=== PATIENT | female | born 2005 | race Caucasian/White ===

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

== ENCOUNTER 2023-03-20 14:05 | Emergency (ER) | payer OTHER, SELFPAY ==
[2023-03-20] VITALS (18 sets, daily range): BP systolic 111–128; BP diastolic 49–76; PULSE 66–91; RESP 14–18; TEMP 36.7; O2SAT 98–100
--- NOTE | ~2023-03-20 | CT_ITS ---
EXAMINATION: CT abdomen pelvis w con DATE: 03/20/2023 17:08 INDICATION: Right lower quadrant abdominal tenderness. Suprapubic pain. TECHNIQUE: Computed tomography (CT) of the abdomen and pelvis was performed with 100 mL Omnipaque 350 intravenous contrast. Automated exposure control and iterative reconstruction technique were employe d. The dose-length product was 455.43 mGy-cm. COMPARISON: None. FINDINGS: The visualized portions of the lung bases are clear. No pleural effusion. The heart size is normal. No pericardial effusion. The liver, gallbladder, spleen, pancreas, and adrenal glands are no rmal. There is cortical thinning of the kidneys, right worse than left. There is a 7 mm cyst in left kidney. There is a 3.1 cm cyst in right ovary. The appendix measures 9 mm in diameter. There is physi ologic fluid in the pelvis. There are no pathologically enlarged lymph nodes. There is mild thoracolu mbar spondylosis. IMPRESSION: 1. 3.1 cm cyst in right ovary, likely a follicular cyst. 2. Appendiceal diameter of 9 mm, which is indeterminate for appendicitis. Reviewed, dictated and finalized at location E.
[2023-03-20 15:14] LABS: Basophils Percent Auto 0.5 % (0.2-1.2); Eosinophils Absolute Auto 0.2 K/mm3 (0-0.3); Eosinophils Percent Auto 1.7 % (0-4.4); Hematocrit 36.9 % (37.0-47.0); Hemoglobin 11.3 g/dL (12.0-15.0); Immature Granulocyte Absolute 0.02 K/mm3 (0.00-0.031); Immature Granulocyte Percent A 0.2 % (0-0.5); Lymphocytes Absolute Auto 2.06 K/mm3 (0.9-3.2); Lymphocytes Percent Auto 23.9 % (18.3-44.2); Mean Corpuscular HGB Conc 30.6 g/dl (32-36); Mean Corpuscular Hemoglobin 25.6 pg (26-34); Mean Corpuscular Volume 83.7 fl (80-100); Mean Platelet Volume 9.7 fl (7.4-10.4); Monocytes Absolute Auto 0.6 K/mm3 (0.1-0.6); Monocytes Percent Auto 6.5 % (2.6-8.5); Neutrophils Absolute Auto 5.8 K/mm3 (1.3-6.7); Neutrophils Percent Auto 67.2 % (45.5-73.1); Platelet Count Result 393 k/mm3 (150-375); Red Blood Count 4.41 M/mm3 (4.2-5.4); Red Cell Distribution Width 14.9 % (11.5-14.5); White Blood Count 8.6 K/mm3 (4.5-10.0)
[2023-03-20 15:45] LABS: Beta HCG Quantitative < 2.39 mIU/ML
--- NOTE | 2023-03-20 16:18 | ED.FEMALEGU ---
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 Patient states that her period was late this month and it started a couple of days ago. States that she has had a lot of right-sided lower abdominal pain since that time. Reports mild dysuria as well. States that her period seems heavier than normal this month. She is soaking about a pad an hour. No nausea or vomiting, diarrhea, constipation, flank pain. No fevers, chest pain, shortness of breath, cough. Related Data Allergies Allergy/AdvReac Type Severity Reaction Status Date / Time No Known Allergies Allergy Verified 03/23/23 09:29 Review of Systems Review of Systems: All systems reviewed & are unremarkable except as noted in HPI and below PMFSH Past Medical History Medical History Genitourinary disorder Urethral surgery for a tear Gonorrhea contact, treated Obesity depression Family History Family History Father Heart problem Mother Hypertension Diabetes mellitus Grandparent Lung cancer Cerebrovascular accident Social History Social History Smoking status: Never smoker Alcohol intake: never Substance use: never Lack of Transportation: No Lack of Food: Never True Current Housing: I Have Housing Concerned About Future Housing: No Difficulty Paying Gas/Electric Bills: No Difficulty Paying for Meds: No Currently Unemployed: YES Education: High School Diploma/GED Difficulty w/ Childcare or Family Care: No Living arrangements: with family Occupation/Education: unemployed Gender identity (if verbalized by the patient): Female Sexual Orientation (if Verbalized by the Patient): Straight or Heterosexual Spiritual care concerns: No Exam Narrative: GENERAL: Well-appearing and in no acute distress. HEAD: Normocephalic, atraumatic. EYES: PERRLA and EOMI. ENT: Nares clear, no rhinorrhea or epistaxis. Mucous membranes moist. NECK: Supple. CHEST: Clear to auscultation. No respiratory distress. HEART: Regular rate and rhythm ABDOMEN: Soft, +RLQ tenderness, no guarding or rebound EXTREMITIES: Normal range of motion. No edema. SKIN: Warm, dry, no rash. NEURO: No focal deficits. Alert and oriented x3. PSYCH: Normal mood and affect. Course Vital Signs Vital signs: Vital Signs Temperature 98.1 F 03/20/23 14:15 Pulse Rate 77 03/20/23 14:15 Respiratory Rate 18 03/20/23 14:15 Blood Pressure 117/49 L 03/20/23 14:15 Pulse Oximetry 100 03/20/23 14:15 Oxygen Delivery Room Air 03/20/23 14:15 Temperature 98.0 F 03/20/23 14:42 Pulse Rate 66 03/20/23 21:05 Respiratory Rate 15 03/20/23 21:05 Blood Pressure 122/76 03/20/23 21:05 Pulse Oximetry 100 03/20/23 21:05 Oxygen Delivery Room Air 03/20/23 14:42 MDM - Female Genitourinary MDM Narrative Medical decision making narrative: Patient is a 18-year-old female presenting with right-sided lower abdominal pain. Vitals are stable. Exam remarkable for the above. CT abdomen pelvis is indeterminant for appendicitis. The appendix is measuring approximately 9 mm. No associated inflammatory changes. Patient does not have a leukocytosis. No left shift. Discussed the imaging findings with general surgery. Advised that if her pain is controlled, can likely send her home with p.o. antibiotics and follow-up in surgery clinic. She is tolerating p.o. intake. Patient states that her pain has significantly improved. She feels comfortable going home. We will start her on Keflex and Flagyl. We will also send in for 800 mg ibuprofen 3 times daily to help with pain as well as vaginal bleeding.
[2023-03-20] MEDS: KETOROLAC 30 MG/ML VIAL (*BKC) IV PUSH (16:34)
[2023-03-20] MEDS: SODIUM CHLORIDE 0.9% IV 1,000 ML 999 ML IV CONT (16:34)
[2023-03-20 16:46] LABS: Alanine Aminotransferase 14 U/L (6-35); Albumin Level 4.2 g/dL (3.5-5.1); Alkaline Phosphatase 77 U/L (38-126); Anion Gap 10 mmol/L (8-16); Aspartate Amino Transferase 24 U/L (14-36); Bilirubin,Total 0.2 mg/dL (0.2-1.3); Blood Urea Nitrogen 14 mg/dL (7-17); Calcium 9.2 mg/dL (8.4-10.2); Carbon Dioxide 25 mmol/L (22-30); Chloride 106 mmol/L (98-107); Estimated CRCL calculation 82 ml/min; Estimated Glomerular Filt Rate > 60; Glucose 84 mg/dL (65-110); Lipase 30 U/L (23-300); Potassium 4.2 mmol/L (3.4-5.0); Sodium 141 mmol/L (137-145)
[2023-03-20 16:49] LABS: Appearance Urine Cloudy (Clear); Bacteria Urine None Seen /hpf; Bilirubin Urine Negative (Negative); Blood Urine 3+ (Negative); Color Urine Yellow (Yellow); Glucose Urine UA Negative (Negative); Ketones Urine Trace mg/dL (Negative); Leukocyte Esterase Ur Trace LEU/UL (Negative); Nitrate Urine Negative (Negative); Non Pathogenic Casts 0-2; Protein Urine Trace mg/dL (Negative); RBC Urine >100 /hpf (0-2); Specific Grav Ur 1.031 (1.001-1.035); Squamous Epithelial Cell Urine Occasional /hpf (Few); pH Urine 6.5 (5.0-9.0)
[2023-03-20 16:51] LABS: Partial Thromboplastin Time 27.4 SECONDS (22.3-36.8); Prothrombin Time 13.7 Seconds (11.1-14.7)
[2023-03-20 17:16] LABS: Add Urine Microscopic? YES
[2023-03-20] MEDS: MORPHINE SULFATE (*CRX) 4 MG/ML INJ IV PUSH (19:14)
[2023-03-20] MEDS: cefTRIAXone 2 GM/NS 100 ML 2 GM/100 ML BAG IVPB (19:15)
[2023-03-20] MEDS: metroNIDAZOLE 500 MG/ISO 100ML 500 MG/100 ML BAG 100 MG IVPB (20:06)
== END 2023-03-20 21:08 | disposition home or self-care (01) ==
PROVIDERS: Preventive Medicine Aerospace Medicine; Emergency Provider Emergency Medicine; PCP Obstetrics & Gynecology
DX: N39.0 Urinary tract infection, site not specified (principal); N93.9 Abnormal uterine and vaginal bleeding, unspecified; R10.31 Right lower quadrant pain; E66.9 Obesity, unspecified; Z68.29 Body mass index [BMI] 29.0-29.9, adult; N83.201 Unspecified ovarian cyst, right side
CPT/HCPCS: 36415; 74177; 80053; 81001; 83690; 84702; 85025; 85610; 85730; 87086; 96361; 96365; 96367; 96375; 99284; J0696; J1836; J1885; J2270; J7030; Q9967

== ENCOUNTER 2023-03-30 06:54 | Outpatient (CLI) | payer OTHER, SELFPAY ==
--- NOTE | ~2023-03-30 | CT_ITS ---
CT of the Abdomen and Pelvis: Indication: Abdominal pain Technique: 2.5 mm axial scans were obtained through the abdomen and pelvis following intravenous adm inistration of 100 cc of Omnipaque 350. Dose reduction technique was used on this scan by utilizing a utomated exposure control and iterative reconstruction technique. The dose-length product (DLP) was 3 64.61 mGy-cm. COMPARISON: 03/20/2023 Findings: Scans through the lung bases are unremarkable. The liver, spleen, pancreas, gallbladder, adrenals and left kidney are within normal limits. There is probable mild right renal cortical scarring. No evidence of aortic aneurysm. No lymphadenopathy. No bowel obstruction or bowel wall thickening. Appendix is again upper limits of normal in size, with out periappendiceal inflammatory change. Images through the pelvis were performed. Urinary bladder unremarkable. Small bilateral follicular ov jamal cysts are present, largest measuring 2.6 cm. There is trace free fluid in the pelvis. Impression: Small bilateral follicular cysts, as above. Small amount of free fluid, possibly related to cyst rupture. Appendix is again upper limits of normal in size, without definite evidence for acute inflammation. Reviewed, dictated and finalized at location . Impression: Small bilateral follicular cysts, as above. Small amount of free fluid, possibly related to cyst rupture. Appendix is again upper limits of normal in size, without definite evidence for acute inflammation.
== END 2023-03-30 06:55 | disposition home or self-care (01) ==
PROVIDERS: Visit Provider Surgery
DX: R10.31 Right lower quadrant pain (principal); N83.02 Follicular cyst of left ovary; N83.01 Follicular cyst of right ovary
CPT/HCPCS: 74177; Q9967

== ENCOUNTER 2023-08-08 21:09 | Emergency (ER) | payer OTHER, SELFPAY ==
--- NOTE | ~2023-08-08 | CT_ITS ---
CT of the Abdomen and Pelvis: Indication: Abdominal pain Technique: 2.5 mm axial scans were obtained through the abdomen and pelvis following intravenous adm inistration of 100 cc of Omnipaque 350. Dose reduction technique was used on this scan by utilizing a utomated exposure control and iterative reconstruction technique. The dose-length product (DLP) was 5 24.15 mGy-cm. COMPARISON: 03/22/2023 Findings: Scans through the lung bases are unremarkable. The liver, spleen, pancreas, gallbladder, adrenals and kidneys are within normal limits. No evidence of aortic aneurysm. No lymphadenopathy. No bowel obstruction or bowel wall thickening. There is no evidence to suggest acute appendicitis. Images through the pelvis were performed. 4 cm probable hemorrhagic right ovarian cyst present. Small to moderate free fluid within the pelvis. No other pelvic mass seen. Urinary bladder unremarkable. Impression: 4 cm hemorrhagic right ovarian cyst with [id number] amount of pelvic free fluid. Reviewed, dictated and finalized at location . 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
--- NOTE | ~2023-08-08 | US_ITS ---
Pelvic ultrasound. Clinical History: Pelvic pain Technique: Realtime transabdominal and transvaginal scanning of the pelvis was performed. Color flow Doppler and Doppler spectral analysis were performed. Findings: The uterus is anteverted. The endometrial stripe has a thickness of 8 mm. No focal mass is identified. The right ovary measures 4.8 x 3.4 x 6.4 cm. Right ovarian cyst measures up to 4.8 cm in maximum diam eter, likely resolving hemorrhagic cyst. The left ovary measures 2.8 x 1.9 x 2.0 cm. No significant left ovarian or adnexal mass is seen. Vascular flow present in both ovaries on Doppler spectral analysis. There a small to moderate amount of free fluid in the cul de sac. Impression: 4.8 cm hemorrhagic right ovarian cyst. Uhfcv-nh-akqjbawh free fluid in the pelvis. Reviewed, dictated and finalized at [facility]. L DRAFTER Impression: 4.8 cm hemorrhagic right ovarian cyst. Mpgtk-oa-mcyvsgyv free fluid in the pelvis.
[2023-08-08 21:12] VITALS: BP 132/52; PULSE 98; RESP 17; TEMP 37.3; O2SAT 99
[2023-08-08 21:28] LABS: Basophils Percent Auto 0.4 % (0.2-1.2); Eosinophils Absolute Auto 0.3 K/mm3 (0-0.3); Eosinophils Percent Auto 2.4 % (0-4.4); Hematocrit 34.9 % (37.0-47.0); Hemoglobin 10.6 g/dL (12.0-15.0); Immature Granulocyte Absolute 0.02 K/mm3 (0.00-0.031); Immature Granulocyte Percent A 0.2 % (0-0.5); Lymphocytes Absolute Auto 3.24 K/mm3 (0.9-3.2); Lymphocytes Percent Auto 29.8 % (18.3-44.2); Mean Corpuscular HGB Conc 30.4 g/dl (32-36); Mean Corpuscular Hemoglobin 24.9 pg (26-34); Mean Corpuscular Volume 82.1 fl (80-100); Mean Platelet Volume 9.5 fl (7.4-10.4); Monocytes Absolute Auto 0.7 K/mm3 (0.1-0.6); Monocytes Percent Auto 6.1 % (2.6-8.5); Neutrophils Absolute Auto 6.7 K/mm3 (1.3-6.7); Neutrophils Percent Auto 61.1 % (45.5-73.1); Platelet Count Result 393 k/mm3 (150-375); Red Blood Count 4.25 M/mm3 (4.2-5.4); Red Cell Distribution Width 15.1 % (11.5-14.5); White Blood Count 10.9 K/mm3 (4.5-10.0)
[2023-08-08 21:38] LABS: Alanine Aminotransferase 14 U/L (6-35); Albumin Level 4.2 g/dL (3.5-5.1); Alkaline Phosphatase 81 U/L (38-126); Anion Gap 7 mmol/L (8-16); Aspartate Amino Transferase 21 U/L (14-36); Bilirubin,Total 0.3 mg/dL (0.2-1.3); Blood Urea Nitrogen 14 mg/dL (7-17); Calcium 9.2 mg/dL (8.4-10.2); Carbon Dioxide 26 mmol/L (22-30); Chloride 105 mmol/L (98-107); Estimated CRCL calculation 103 ml/min; Estimated Glomerular Filt Rate > 60; Glucose 102 mg/dL (65-110); Lipase 33 U/L (23-300); Potassium 3.8 mmol/L (3.4-5.0); Sodium 138 mmol/L (137-145)
[2023-08-08 23:49] VITALS: BP 129/78; PULSE 100; RESP 18; O2SAT 100
[2023-08-09 00:18] LABS: Appearance Urine Clear (Clear); Bilirubin Urine Negative (Negative); Blood Urine Negative (Negative); Color Urine Yellow (Yellow); Glucose Urine UA Negative (Negative); Ketones Urine Trace mg/dL (Negative); Leukocyte Esterase Ur Negative LEU/UL (Negative); Nitrate Urine Negative (Negative); Protein Urine Negative (Negative); Specific Grav Ur 1.032 (1.001-1.035); pH Urine 7.5 (5.0-9.0)
[2023-08-09 00:19] LABS: Add Urine Microscopic? NO
--- NOTE | 2023-08-09 00:35 | ED.ABDPAIN ---
HPI - Abdominal Pain General Chief Complaint: Abdominal Pain <Meg Sawyer PA-C - Last Filed: 08/09/23 02:33> Stated Complaint: abd/pelvic pain, vaginal discharge <Meg Sawyer PA-C - Last Filed: 08/09/23 02:33> Time Seen by Provider: 08/08/23 23:44 <Meg Sawyer PA-C - Last Filed: 08/09/23 02:33> History of Present Illness HPI narrative: 18-year-old female, reports for evaluation for suprapubic and right lower quadrant abdominal pain that started tonight. LMP 07/14/23. Patient was seen in our emergency department on 03/20/2023 for lower abdominal pain. She was found to have CT findings indeterminate for appendicitis. She was discharged home with follow-up outpatient with General surgery, had a repeat CT scan done which showed appendix upper limits of normal size but without acute inflammation. Patient states her pain now feels like it did when she was evaluated in the ER for that pain. She denies fever, nausea vomiting, diarrhea. Last bowel movement was yesterday and normal. Denies dysuria hematuria, urinary frequency urgency, vaginal bleeding or abnormal discharge. States she was recently tested for STDs by her OBGYN was negative. She is not concerned for STDs today. <Meg Sawyer PA-C - Last Filed: 08/09/23 02:33> Related Data Allergies/Adverse Reactions: Allergies Allergy/AdvReac Type Severity Reaction Status Date / Time No Known Allergies Allergy Verified 07/25/23 10:21 <Meg Sawyer PA-C - Last Filed: 08/09/23 02:33> Review of Systems Review of Systems: CONSTITUTIONAL: Denies fever, chills, or sweats. EYES: Denies visual changes, redness, or discharge. ENT: Denies rhinorrhea, congestion, sore throat, or otalgia. CARDIOVASCULAR: Denies chest pain, palpitations, or edema. RESPIRATORY: Denies cough or dyspnea. GASTROINTESTINAL: See HPI GENITOURINARY: Denies dysuria or hematuria. SKIN: Denies rash or itching. MUSCULOSKELETAL: Denies back pain, joint pain, or myalgia. NEUROLOGIC: Denies headache, numbness, or weakness. PSYCHIATRIC: Denies anxiety or depression. <Meg Sawyer PA-C - Last Filed: 08/09/23 02:33> [facility] Past Medical History Medical History: Medical History Genitourinary disorder Urethral surgery for a tear Gonorrhea contact, treated Obesity depression <Meg Sawyer PA-C - Last Filed: 08/09/23 02:33> Family History Family History: Family History Father Heart problem Mother Hypertension Diabetes mellitus Grandparent Lung cancer Cerebrovascular accident <Meg Sawyer PA-C - Last Filed: 08/09/23 02:33> Social History Social History: Social History Smoking status: Never smoker Alcohol intake: never Substance use: never Lack of Transportation: No Lack of Food: Never True Current Housing: I Have Housing Concerned About Future Housing: No Difficulty Paying Gas/Electric Bills: No Difficulty Paying for Meds: No Currently Unemployed: YES Education: High School Diploma/GED Difficulty w/ Childcare or Family Care: No Living arrangements: with family Occupation/Education: unemployed Gender identity (if verbalized by the patient): Female Sexual Orientation (if Verbalized by the Patient): Straight or Heterosexual Spiritual care concerns: No <Meg Sawyer PA-C - Last Filed: 08/09/23 02:33> Exam Narrative: GENERAL: Well-appearing, well-nourished, and in no acute distress. HEAD: Normocephalic, atraumatic. EYES: PERRLA and EOMI. ENT: Nares clear, no rhinorrhea or epistaxis. Mucous membranes moist. NECK: Supple. CHEST: Clear to auscultation. No respiratory distress. HEART: Regular rate and rhythm. No murmur heard. Normal peripheral pulses. ABDOMEN: Normoactive bowel sounds.
[2023-08-09 01:00] VITALS: BP 124/62; PULSE 81; RESP 18; O2SAT 99
[2023-08-09] MEDS: SODIUM CHLORIDE 0.9% IV 1,000 ML 999 ML IV CONT (01:08)
[2023-08-09] MEDS: MORPHINE SULFATE (*CRX) 4 MG/ML INJ IV PUSH (01:08)
[2023-08-09 04:10] VITALS: BP 124/64; PULSE 75; RESP 15; O2SAT 100
== END 2023-08-09 04:13 | disposition home or self-care (01) ==
PROVIDERS: Emergency Provider Emergency Medicine
DX: N83.201 Unspecified ovarian cyst, right side (principal); R10.30 Lower abdominal pain, unspecified
CPT/HCPCS: 36415; 74177; 76830; 76856; 80053; 81003; 81025; 83690; 85025; 96361; 96374; 99284; J2270; J7030; Q9967

== ENCOUNTER 2024-06-17 14:27 | Emergency (ER) | payer OTHER, SELFPAY ==
[2024-06-17 14:32] VITALS: BP 130/76; PULSE 100; RESP 18; TEMP 36.5; O2SAT 100
[2024-06-17] MEDS: SODIUM CHLORIDE 0.9% IV 1,000 ML 999 ML IV CONT (15:14)
[2024-06-17] MEDS: MECLIZINE HCL 25 MG TABLET PO (15:14)
[2024-06-17 15:16] LABS: Basophils Percent Auto 0.2 % (0.2-1.2); Eosinophils Percent Auto 0.3 % (0-4.4); Hemoglobin 11.3 g/dL (12.0-15.0); Immature Granulocyte Absolute 0.02 K/mm3 (0.00-0.031); Immature Granulocyte Percent A 0.3 % (0-0.5); Lymphocytes Absolute Auto 0.91 K/mm3 (0.9-3.2); Lymphocytes Percent Auto 15.6 % (18.3-44.2); Mean Corpuscular HGB Conc 33.2 g/dl (32-36); Mean Corpuscular Hemoglobin 27.3 pg (26-34); Mean Corpuscular Volume 82.1 fl (80-100); Mean Platelet Volume 9.4 fl (7.4-10.4); Monocytes Absolute Auto 0.3 K/mm3 (0.1-0.6); Monocytes Percent Auto 5.5 % (2.6-8.5); Neutrophils Absolute Auto 4.5 K/mm3 (1.3-6.7); Neutrophils Percent Auto 78.1 % (45.5-73.1); Platelet Count Result 281 k/mm3 (150-375); Red Blood Count 4.14 M/mm3 (4.2-5.4); Red Cell Distribution Width 15.5 % (11.5-14.5); White Blood Count 5.8 K/mm3 (4.5-10.0)
[2024-06-17 15:27] LABS: Alanine Aminotransferase 17 U/L (6-35); Albumin Level 3.9 g/dL (3.5-5.1); Alkaline Phosphatase 91 U/L (38-126); Anion Gap 6 mmol/L (4-12); Aspartate Amino Transferase 20 U/L (14-36); Bilirubin,Total 0.2 mg/dL (0.2-1.3); Blood Urea Nitrogen 6 mg/dL (7-17); Calcium 8.7 mg/dL (8.4-10.2); Carbon Dioxide 24 mmol/L (22-30); Chloride 105 mmol/L (98-107); Estimated CRCL calculation 173 ml/min; Estimated Glomerular Filt Rate > 60; Glucose 97 mg/dL (65-110); Potassium 3.8 mmol/L (3.4-5.0); Sodium 135 mmol/L (137-145)
--- NOTE | 2024-06-17 15:54 | PC.NURSE ---
Patient states that she feels much better. Notified EDP Dr. Wu.
--- NOTE | 2024-06-17 16:43 | ED.GENADULT ---
HPI - General Adult General Chief complaint: Nausea/Vomiting/Diarrhea Stated complaint: OB sent for fluids n/v Time Seen by Provider: 06/17/24 14:40 History of Present Illness HPI narrative: Patient is a 19-year-old female who presents ER with nausea and dizziness. Ongoing for couple days. Worse if she lays on her right side. Feels spinning. No runny nose or sore throat or cough. No fevers or chills or sweats. She is 15 weeks in gestation. No vaginal bleeding or discharge. No urinary symptoms. Related Data Home Medications ?Medication ?Instructions ?Recorded ?Confirmed ?Last Taken ?Type docosahexaenoic acid 200 mg mg PO 05/22/24 05/22/24 Unknown History capsule ( DHA) Allergies Allergy/AdvReac Type Severity Reaction Status Date / Time No Known Allergies Allergy Verified 06/17/24 14:29 Review of Systems Constitutional: Constitutional: Reports no additional constitutional complaints ENT: Reports dizziness, Denies nasal congestion and Denies sore throat Gastrointestinal: Gastrointestinal: Denies abdominal pain, Denies diarrhea, Reports nausea and Denies vomiting Genitourinary: Genitourinary: Reports no additional female genitourinary complaints PMFSH Past Medical History Medical History Genitourinary disorder Urethral surgery for a tear Gonorrhea contact, treated Obesity depression Family History Family History Father Heart problem Mother Hypertension Diabetes mellitus Grandparent Lung cancer Cerebrovascular accident Social History Social History Smoking status: Never smoker Alcohol intake: never Substance use: never Lack of Transportation: No Lack of Food: Never True Current Housing: I Have Housing Concerned About Future Housing: No Difficulty Paying Gas/Electric Bills: No Difficulty Paying for Meds: No Currently Unemployed: YES Education: High School Diploma/GED Difficulty w/ Childcare or Family Care: No Living arrangements: with family Occupation/Education: unemployed Gender identity (if verbalized by the patient): Female Sexual Orientation (if Verbalized by the Patient): Straight or Heterosexual Spiritual care concerns: No Exam Narrative: GENERAL: Well-appearing, well-nourished, and in no acute distress. HEAD: Normocephalic, atraumatic. EYES: PERRL and right gaze nystagmus. ENT: Mucous membranes moist. TMs normal bilaterally, ear canals without cerumen. CHEST: Clear to auscultation. No respiratory distress. HEART: Regular rate and rhythm. Normal peripheral pulses. ABDOMEN: Soft, nontender, nondistended. EXTREMITIES: Normal range of motion. No edema. NEURO: Alert and oriented x3. PSYCH: Normal mood and affect. Course Course Emergency Course: Feels markedly improved with meclizine and fluids. Labs unremarkable. Appropriate for discharge. Vital Signs Vital signs: Vital Signs Temperature 97.7 F 06/17/24 14:32 Pulse Rate 100 06/17/24 14:32 Respiratory Rate 18 06/17/24 14:32 Blood Pressure 130/76 06/17/24 14:32 Pulse Oximetry 100 06/17/24 14:32 Oxygen Delivery Room Air 06/17/24 14:32 Temperature 97.7 F 06/17/24 16:57 Pulse Rate 66 06/17/24 16:57 Respiratory Rate 17 06/17/24 16:57 Blood Pressure 106/60 06/17/24 16:57 Pulse Oximetry 100 06/17/24 16:57 Oxygen Delivery Room Air 06/17/24 14:32 Medical Decision Making Vital Signs Vital Signs: Vital Signs Temperature 97.7 F 06/17/24 14:32 Pulse Rate 100 06/17/24 14:32 Respiratory Rate 18 06/17/24 14:32 Blood Pressure 130/76 06/17/24 14:32 Pulse Oximetry 100 06/17/24 14:32 Oxygen Delivery Room Air 06/17/24 14:32 Temperature 97.7 F 06/17/24 16:57 Pulse Rate 66 06/17/24 16:57 Respiratory Rate 17 06/17/24 16:57 Blood Pressure 106/60 06/17/24 16:57 Pulse Oximetry 100 06/17/24 16:57 Oxygen Delivery Room Air 06/17/24 14:32 Lab Data 06/17/24 15:09 06/17/24 15:09 Labs: Lab Results 06/17/24 Range/Units 15:09 WBC 5.8 (4.5-10.0) K/mm3 RBC 4.14 L (4.2-5.4) M/mm3 Hgb 11.3 L (12.0-15.0) g/dL Hct 34.0 L (37.0-47.0) % MCV 82.1 (80-100) fl MCH 27.3 (26-34) pg MCHC 33.2 (32-36) g/dl RDW 15.5 H (11.5-14.5) % Plt Count 281 (150-375) k/mm3 MPV 9.4 (7.4-10.4) fl Immature Gran % (Auto) 0.3 (0-0.5) % Neut % (Auto) 78.1 H (45.5-73.1) % Lymph % (Auto) 15.6 L (18.3-44.2) % [place] % (Auto) 5.5 (2.6-8.5) % Eos % (Auto) 0.3 (0-4.4) % Baso % (Auto) 0.2 (0.2-1.2) % Lymph # (Auto) 0.91 (0.9-3.2) K/mm3 [place] # (Auto) 0.3 (0.1-0.6) K/mm3 Eos # (Auto) 0.0 (0-0.3) K/mm3 Baso # (Auto) 0.0 (0.0-0.1) K/mm3 Abs Immat Gran (auto) 0.02 (0.00-0.031) K/mm3 Absolute Neuts (auto) 4.5 (1.3-6.7) K/mm3 Absolute Nucleated RBC 0.000 (0.0-0.012) K/mm3 Nucleated RBC % 0.0 (0.0-0.2) % Sodium 135 L (137-145) mmol/L Potassium 3.8 (3.4-5.0) mmol/L Chloride 105 (98-107) mmol/L Carbon Dioxide 24 (22-30) mmol/L Anion Gap 6 (4-12) mmol/L BUN 6 L D (7-17) mg/dL Creatinine 0.40 L (0.7-1.0) mg/dL Estim Creat Clear Calc 173 ml/min Estimated GFR > 60 (59 - ) Glucose 97 (65-110) mg/dL Calcium 8.7 (8.4-10.2) mg/dL Total Bilirubin 0.2 (0.2-1.3) mg/dL AST 20 (14-36) U/L ALT 17 (6-35) U/L Alkaline Phosphatase 91 (38-126) U/L Total Protein 7.0 (6.3-8.2) g/dL Albumin 3.9 (3.5-5.1) g/dL Discharge Plan Discharge Clinical Impression: Vertigo Patient Disposition: Home, Self-Care Condition: Stable Instructions: Vertigo (ED) Additional Instructions: Return the ER if you have worsening dizziness, you can not keep down food/water/medication, or you have additional concerns. Patient Language: Irish Prescriptions: New meclizine 12.5 mg tablet 12.5 mg PO TID PRN (Reason: dizziness) Qty: 14 0RF No Action DHA 200 mg capsule PO Follow-up/Referrals: Damien Shaw MD [Primary Care Provider] - 1 Week Stand Alone Forms: Work/School Release IP
[2024-06-17 16:57] VITALS: BP 106/60; PULSE 66; RESP 17; TEMP 36.5; O2SAT 100
== END 2024-06-17 16:59 | disposition home or self-care (01) ==
PROVIDERS: Emergency Provider Emergency Medicine; PCP Obstetrics & Gynecology
DX: R42 Dizziness and giddiness (principal); E66.9 Obesity, unspecified; Z68.31 Body mass index [BMI] 31.0-31.9, adult
CPT/HCPCS: 36415; 80053; 85025; 96360; 99283; A9270; J7030

== ENCOUNTER 2024-06-19 14:20 | Outpatient (CLI) | payer OTHER, SELFPAY ==
--- NOTE | ~2024-06-19 | US_ITS ---
EXAMINATION: US OB follow up DATE: 06/19/2024 15:28 INDICATION: Amenorrhea during early second trimester TECHNIQUE: Real-time ultrasound of the pelvis was performed. The interpreting radiologist was not pre sent for the study. COMPARISON: None. FINDINGS: There is a single living fetus in breech presentation. The placenta is anterior with caudal margin 3 .8 cm from the internal cervical os. heart rate is 151 beats per minute (bpm). The amniotic flu id and is subjectively normal. Deepest vertical pocket measures 6.8 cm which is normal. Normal cervic al length measuring 3.3 cm. The following biometric data were obtained: BPD: 3.0 cm -> 15 weeks 4 days Head circumference: 11.8 cm -> 15 weeks 6 days Abdominal circumference: 10.5 cm -> 16 weeks 3 days Femur length: 2.0 cm -> 15 weeks 6 days These measurements are concordant. Head circumference to abdominal circumference ratio: 1.13 (normal range 1.06-1.34). Estimated weight: 145 g (+/-) 22 g or 5 oz. (+/-) 1 oz. IMPRESSION: 1. Single living fetus in breech presentation with heart rate of 151 bpm. 2. Gestational age by ultrasound of 16 weeks 0 day(s) +/- 1 week 1 day with ultrasound estimated date of delivery (ALDO) of 12/04/2024. Estimated weight is 83rd percentile by Hadlock criteria when 12/08/2024 is used as the ALDO. Please correlate with clinical information or earlier ultrasounds for most accurate ALDO. Reviewed, dictated and finalized at location A. 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 Single living fetus in breech presentation with heart rate of 151 bpm. 2. Gestational age by ultrasound of 16 weeks 0 day(s) +/- 1 week 1 day with ult rasound estimated date of delivery (ALDO) of 12/04/2024. Estimated weight is 83rd percentile by Hadlock criteria when 12/08/2024 is used as the ALDO. Please c orrelate with clinical information or earlier ultrasounds for most accurate ALDO .
== END 2024-06-19 14:21 | disposition home or self-care (01) ==
PROVIDERS: PCP Obstetrics & Gynecology; Visit Provider Nurse Practitioner Family
DX: N91.2 Amenorrhea, unspecified (principal)
CPT/HCPCS: 76816

== ENCOUNTER 2024-10-08 15:22 | Observation (INO) | payer OTHER, SELFPAY ==
[2024-10-08 16:03] VITALS: BP 134/76; PULSE 101
[2024-10-08 16:15] VITALS: BP 120/66; PULSE 98
[2024-10-08 16:30] VITALS: BP 119/67; PULSE 100
[2024-10-08 16:40] LABS: Add Urine Microscopic? YES; Appearance Urine Cloudy (Clear); Bacteria Urine 2+ /hpf; Bilirubin Urine Negative (Negative); Blood Urine Negative (Negative); Color Urine Yellow (Yellow); Glucose Urine UA Negative (Negative); Ketones Urine Trace mg/dL (Negative); Leukocyte Esterase Ur 1+ LEU/UL (Negative); Nitrate Urine Negative (Negative); Non Pathogenic Casts 0-2; Protein Urine Negative (Negative); RBC Urine 0-2 /hpf (0-2); Specific Grav Ur 1.023 (1.001-1.035); Squamous Epithelial Cell Urine Moderate /hpf (Few); Urobilinogen Urine 0.2 mg/dL (<2.0); pH Urine 6.5 (5.0-9.0)
--- OUTSIDE RECORDS SUMMARY | 2024-10-08 16:44 | XMS_ITS ---
Author Name [facility], [facility] Address [address] [place] [address] Phone Organization [facility] Address [address] [place] [address] Phone Care Team Providers Care Physician Assistant Psychiatry Name Role Phone [facility] Unavailable [phone] WAYNE HANKS Unavailable ALLERGIES, ADVERSE REACTIONS AND ALERTS Allergy Name Allergy Date Allergy Status Allergy Severity Allergy Reaction NO KNOWN DRUG ALLERGIES MEDICATIONS RxNorm Brand Name Prescription Ordered Value Order Unit Start Date Date Status Fill Status Indications 458807 amoxicill in-pot clavulana te 875-125 mg tablet SIG: amoxicillin-p ot clavulanate 875-125 mg oral tablet, 7 days, Dispense #14 Tablet, 0 Refills, Directions: Take one tablet by mouth twice daily X 7 days 14 tablet 2023 024 Historic PROBLEMS Problem None PROCEDURES Procedure Description Date Notes NO PROCEDURES PERFORMED ASSESSMENTS Assessment None PLAN OF TREATMENT Assessment Planned Activity LOINC Planned Ab e None CONSULTATION NOTE Note Author Date None HISTORY AND PHYSICAL NOTE Note Author Date None PROGRESS NOTE Note Author Date None DISCHARGE SUMMARY Note Author Date None CHIEF COMPLAINT AND REASON FOR VISIT FUNCTIONAL STATUS Functional or Cognitive Find ing None MENTAL STATUS Cognitive Finding None ENCOUNTERS Encounter Type Provider Diagnoses Start Date Location None SOCIAL HISTORY Social Status Observation Unknown if ever smoked Sex:Female CARE TEAM INFORMATION Physician Assistant Psychiatry Provider ID Role Location Phone [facility] [address] [place] [address] WAYNE TUTTLE [phone] NURSE PRACTITIONER [address] [place] [address]
--- OUTSIDE RECORDS SUMMARY | 2024-10-08 16:44 | XMS_ITS | Clinical Summary ---
Author Organization [facility] Address [address] [place] [address] Care Team Providers Care Director Of Nursing Name Role Phone Unavailable Primary Care Provider Unavailabl e Source Comments [facility],non-owned Affiliates and Associated Physician Practices is amultiple site organization consisting of ambulatory clinics and hospital sitesin [place], [place], [place] and [place]. This disclosure is being madepursuant to the Care Everywhere program and may not contain all information available regarding this patient. Last updated 18.[facility] Allergies No known active allergies Medications * Be aware that medications may not be up to date on this document. Alwaysverify current medications with the patient. Medication Sig Dispensed Refills Start Date End Date Status doxylamine (Unisom) 25 MG tablet Take 1 (one) tablet by mouth nightly as needed for Insomnia 30 tablet 2 05/07/2024 Active pyridoxine (Vitamin B-6) 25 MG tablet Take 1 (one) tablet by mouth 3 times daily 90 tablet 2 05/07/2024 Active Active Problems Problem Noted Date Diagnosed Date 9 weeks gestation of 05/07/2024 Nausea 05/07/2024 Estimated Date of Delivery Comme nts Yes 12/08/2024 Based on last me nstrual period of 03/03/2024 Social History Tobacco Use Types Packs/Day Years Used Date Smoking Tobacco: Never Smokeless Tobacco: Never Overall Financial Resource Strain (CARDIA) Answe r Date Recorded How hard is it for you to pa y for the very basics like food, housing, medical care, and heating? Not hard at all 05/07/2024 [facility] of Occupat ional Health - Occupational Stress Questionnaire Answer Date Recorded Do you feel stress - tense, restless, nervous, or anxious, or unable to sleep at night because your mind is troubled all the time - these days? Not at all 05/07/2024 Hunger Vital Sign Answer Date Recorded Within the past 12 months, y ou worried that your food would run out before you got the money to buy more. Never true 05/07/20 24 Within the past 12 months, t he food you bought just didn't last and you didn't have money to get more. Never true 05/07/2024 PRAPARE - Transportation Answer Date Re corded In the past 12 months, has l ack of transportation kept you from medical appointments or from getting medications? No 11/2023 In the past 12 months, has l ack of transportation kept you from meetings, work, or from getting things needed for daily living? No 05/07/2024 Cascade Depression Scale Answer Date Recorded Cascade Depression Scale Total 0 05/07/2024 The thought of harming myself has occurred to me . Never 05/07/2024 Housing Stability Vital Sign Answer Ab e Recorded In the last 12 months, was t here a time when you were not able to pay the mortgage or rent on time? No 05/07/2024 In the past 12 months, how m any times have you moved where you were living? 1 05/07/2024 [facility] were you [facility] or living in a detention (including now)? No 05/07/2024 Estimated Date of Delivery Comme nts Yes 12/08/2024 Based on last me nstrual period of 03/03/2024 Sex and Gender Information Value Date Recorded Sex Assigned at Not on file Gender Identity Not on file Sexual Orientation Not on file Last Filed Vital Signs Vital Sign Reading Time Taken Comments Blood Pressure 134/85 05/07/2024 2:05 PM GAS PLANT TECHNICIAN Pulse 92 05/07/2024 2:05 PM GAS PLANT TECHNICIAN Temperature 36.9 C (98.5 F) 03/21/2018 9:16 AM CDT Respiratory Rate - - Oxygen Saturation - - Inhaled Oxygen Concentration - - Weight 78.9 kg (174 lb) 05/07/2024 2:05 PM GAS PLANT TECHNICIAN Height 158.8 cm (5' 2.5 ) 03/21/2018 9:16 AM CDT Body Mass Index - - Plan of Treatment Health Maintenance Due Date Last Done Comments PAP SMEAR 2003 HPV VACCINE (1 - 3-dose series) 2018 CHLAMYDIA/GONORRHEA SCREENING 2019 MENINGOCOCCAL (Group B) VACCINE SHARED DECISION-MAKING (1 of 2 - Standard) 2019 DTAP/TDAP/TD VACCINES (1 - Tdap) 2022 HEPATITIS B VACCINE (1 of 3 - 19+ 3-dose series) 2022 COVID-19 VACCINE ( - season) 2024 DEPRESSION SCREENING 07/03/2024 05/07/2024 OB-ONE HOUR GLUCOSE 09/01/2024 OB-TDAP CURRENT 09/08/2024 INFLUENZA VACCINE (Season Ended) 2025 05/26/2021, 05/06/2019, 05/31/2018, Additional history exists ZOSTER VACCINE (1 of 2) 2053 HEPATITIS C SCREENING Completed 05/07/2024 HIV SCREENING Completed 05/07/2024 HIB VACCINE Aged Out No longer eligi ble based on patient's age to complete this topic MENINGOCOCCAL GROUPS A/C/Y/W VACCINE Aged Out No longer eligible based on patient's age to complete this topic PNEUMOCOCCAL VACCINE Aged Out No long er eligible based on patient's age to complete this topic Respiratory Syncytial Virus (RSV) Vaccine Pt: or over 60 yrs (No Doses Required) Completed Procedures Procedure Name Priority Date/Time Associated Diagnosis Comments HEPATITIS C ANTIBODY Routine 05/07/2024 2:41 PM GAS PLANT TECHNICIAN Encounter for supervision of normal first in first trimester 9 weeks gestation of HIV-1 HIV-2 ANTIBODY + HIV P24 AG PANEL Routine 05/07/2024 2:41 PM GAS PLANT TECHNICIAN Encounter for supervision of normal first in first trimester 9 weeks gestation of from Last 3 Months or Most Recently Relevant to Health Maintenance Results * HIV-1 HIV-2 ANTIBODY + HIV P24 AG PANEL (05/07/2024 2:41 PM GAS PLANT TECHNICIAN) HIV1/2 Ab + P24 Ag Non Reactive Non Reactive 05/07/2024 4:01 PM GAS PLANT TECHNICIAN [facility] Blood BLOOD SPECIMEN / Unknown Venipuncture / Unknown 05/07/2024 2:41 PM GAS PLANT TECHNICIAN 05/07/2024 3:14 PM GAS PLANT TECHNICIAN Narrative [facility] - 05/07/2024 4:01 PM GAS PLANT TECHNICIAN No Laboratory evidence of HIV infection. Aleyda Alcala MD LAB - CHEMISTRY OR DERABLES Performing Organization Address [facility] Co de Phone Number [facility] [address] [place], [place] [id number] * HEPATITIS C ANTIBODY (05/07/2024 2:41 PM GAS PLANT TECHNICIAN) HCV Antibody Screen Non Reactive Non Reactive 05/07/2024 4:03 PM GAS PLANT TECHNICIAN [facility] Blood BLOOD SPECIMEN / Unknown Venipuncture / Unknown 05/07/2024 2:41 PM GAS PLANT TECHNICIAN 05/07/2024 3:14 PM GAS PLANT TECHNICIAN [facility] - 05/07/2024 4:03 PM GAS PLANT TECHNICIAN Non Reactive - Antibodies to Hepatitis C virus (HCV) were not detected, result does not exclude early acute HCV infection. Aleyda Alcala MD LAB - CHEMISTRY OR DERABLES Performing Organization Address [place]/[facility] Co de Phone Number [facility] [address] [place] [phone] from Last 3 Months or Most Recently Relevant to Health Maintenance Sybil Taryn Personal/Family Self [address] [address] STACY MIDDLETON Personal/Family Mother 1969 [address] [place] [id number] Sybil, Taryn Personal/Family Self 2005
--- OUTSIDE RECORDS SUMMARY | 2024-10-08 16:44 | XMS_ITS | Clinical Summary ---
Author Organization [facility] Address [address] [place] [phone] Phone Care Team Providers Care Changeover Operator Name Role Phone Unavailable Primary Care Provider Unavailabl e Encounters Date Type Department Care Team Description 09/18/2024 External Device Data STL ABSTRACTION Provider, Abstract 09/18/2024 External Device Data STL ABSTRACTION Provider, Abstract 09/07/2024 External Device Data STL ABSTRACTION Provider, Abstract 09/07/2024 External Device Data STL ABSTRACTION Provider, Abstract 09/04/2024 External Device Data STL ABSTRACTION Provider, Abstract 08/20/2024 External Device Data STL ABSTRACTION Provider, Abstract 08/06/2024 External Device Data STL ABSTRACTION Provider, Abstract 08/06/2024 External Device Data STL ABSTRACTION Provider, Abstract 08/06/2024 External Device Data STL ABSTRACTION Provider, Abstract 08/05/2024 10:15 AM COMPLAINT INVESTIGATOR - 08/05/2024 11:59 PM COMPLAINT INVESTIGATOR Hospital Encounter [facility] [address] [place] [address] Damien Riley MD Discharge Disposition: Home or Self Care from Last 3 Months Social History Tobacco Use Types Packs/Day Years Used Date Smoking Tobacco: Never Assessed Adolescent Education Answer Date Record ed Getting School Help Needed Not on file 02/03 Comments Unknown Sex and Gender Information Value Date Recorded Sex Assigned at Not on file Legal Sex Female 4:17 PM CDT Gender Identity Not on file Sexual Orientation Not on file Plan of Treatment Upcoming Encounters Date Type Department Care Team (Late st Contact Info) Description 10/17/2024 1:45 PM CDT Appointment [facility] [address] [place] [address] Minerva Cárdenas MD [address] [place] [address] Health Maintenance Due Date Last Done Comments CHLAMYDIA SCREENING (ANNUAL) 11-24 YEARS 2014 HPV VACCINES (3 - 2-dose series) 08/02/2015 03/26/20 15, 01/30/2015 Preventative Visit-Managed Medicaid 2022 INFLUENZA VACCINE (#1) 2024 CERVICAL CANCER SCREENING 2024 HPV/Cotest (21-29) 2024 PAP SMEAR 2024 PAP SMEAR 2024 DTAP/TDAP/TD VACCINES (7 - T d or Tdap) 01/30/2025 01/30/2015, 07/15/2008, 10/25/2004, Additional history exists HEPATITIS B VACCINES Completed 06/02/2004, 2003, 2003, Additional history exists Procedures Procedure Name Priority Date/Time Associated Diagnosis Comments US OB 14+ WKS SINGLE GEST Routine 08/05/2024 11:19 AM COMPLAINT INVESTIGATOR screening for malformation using ultrasonics from Last 3 Months Results * US OB 14+ WKS SINGLE GEST (08/05/2024 11:19 AM COMPLAINT INVESTIGATOR) Anatomical Region Laterality Modality Pelvis Ultrasound 08/05/2024 10:2 5 AM COMPLAINT INVESTIGATOR Narrative 08/05/2024 11:59 AM COMPLAINT INVESTIGATOR STL BASIC ----- Pat. Name: TARYN HORTON Study Date: 08/05/2024 10:25am Pat. NO: [id number] Referring MD: DAMIEN RILEY MD Site: [facility] Officer: Monica Bell RDMS : 2005 Age: 19 ----- INDICATION ----- Anatomy Survey pt states low risk NIPT Maternal Obesity (BMI<40) Complicating CODING ----- Diagnoses Z3A.22: Weeks of gestation O99.212: Obesity complicating Z36.3: Encounter for screening for malformations Procedures 02139: Ultrasound, uterus, real time with image documentation, and maternal evaluation, after first trimester (> or = 14 weeks 0 days), transabdominal approach; single or first gestation MATERNAL ASSESSMENT ----- Physical Exam Weight 77 kg. BMI 31.09 kg/m METHOD ----- Transabdominal ultrasound examination ----- [place] . Number of fetuses: 1 DATING ----- Cycle: regular cycle Method of dating: based on stated ALDO GA by prior assessment 22 w + 1 d ALDO by prior assessment: 12/08/2024 Ultrasound examination on: 08/05/2024 GA by U/S based upon: AC, BPD, EFW, Femur, HC GA by U/S 22 w + 3 d ALDO by U/S: 12/06/2024 Assigned: based on stated ALDO, selected on 08/05/2024 Assigned GA 22 w + 1 d Assigned ALDO: 12/08/2024 BIOMETRY ----- BPD 55.4 mm 22w 6d 75% Hadlock OFD 72.0 mm 24w 0d 93% Padilla HC 205.0 mm 22w 4d 58% Hadlock Cerebellum tr 24.6 mm 23w 3d 95% Cobb Nuchal fold 4.0 mm AC 183.6 mm 23w 1d 75% Hadlock Femur 36.3 mm 21w 4d 20% Hadlock Humerus 33.4 mm 21w 2d 21% Padilla HC / AC 1.12 29% Nicolaides Weight Calculation: EFW 508 g 22w 2d 60% Hadlock EFW (lb,oz) 1 lb 2 oz EFW by Hadlock ([id number]) Head / Face / Neck Biometry: Electrician Apprentice 4.8 mm CM 3.5 mm 4% Nicolaides Outer IOD 34.9 mm 22w 2d 28% Padilla Extremities / Bony Struc Biometry: FL / BPD 0.66 FL / HC 0.18 FL / AC 0.20 GENERAL EVALUATION ----- Cardiac activity present. FHR 146 bpm. movements: present. Presentation: cephalic Placenta: Placental site: anterior Umbilical cord: Cord vessels: 3 vessel cord. Insertion site: placental insertion: normal Amniotic fluid: Amount of AF: normal amount. MVP 7.2 cm ANATOMY ----- The following structures appear normal: Head / Neck Cranium. Lateral ventricles. Choroid plexus. Midline falx. Cavum septi pellucidi. Cerebellum. Cisterna magna. Nuchal fold. Face Lips. Profile. Nose. Palate. Orbits. Heart / Thorax 4-chamber view. RVOT view. LVOT view. 3-vessel view. 5-skwfoz-sugnfpi view. Situs. Aortic arch view. Ductal arch view. Superior vena cava. Inferior vena cava. High short axis view. Cardiac rhythm. Diaphragm. Abdomen Abdominal wall. Stomach. Kidneys. Bladder. Spine Cervical spine. Thoracic spine. Lumbar spine. Sacral spine. Extremities / Arms. Right hand. Left hand. Legs. Right foot. Left foot. Skeleton MATERNAL STRUCTURES ----- Cervix Visualized Approach - Transabdominal: Cervical length 44.7 mm Right Ovary Not visualized Left Ovary Not visualized GROWTH OVERVIEW ----- Exam date GA BPD (mm) HC (mm) AC (mm) FL (mm) HL (mm) EFW (g) 08/05/2024 22w 1d 55.4 75% 205.0 58% 183.6 75% 36.3 20% 33.4 21% 508 60% COMMENT ----- Patient's name and date of were verified by the ship wirer prior to the exam . IMPRESSION ----- [place] @ 22w 1d referred for anatomical survey. - The biometry is consistent with dates. - Amniotic fluid indices are within normal limits. - The placenta is anterior with a central cord insertion and with no evidence of previa or low-lying placenta. - Visualized anatomy is unremarkable and no abnormality is suspected at this time. A followup ultrasound at 32 weeks is recommended to check growth. Thank you for allowing us to participate in the care of your patient. Procedure Note Minerva Cárdenas MD - 08/05/2024 STL BASIC ----- Pat. Name:Radha HORTON Date:08/05/2024 10:25am Pat. NO: [id number] MD:DAMIEN RILEY [facility] RDMS :2005Age:19 ----- INDICATION ----- Anatomy Survey pt states low riskNIPT Maternal Obesity (BMI<40) Complicating CODING ----- Diagnoses Z3A.22: Weeks of gestation O99.212: Obesity complicating Z36.3: Encounter for screening formalformations Procedures [id number]: Ultrasound, uterus, real time withimage documentation, and maternal evaluation, after first trimester (> or = 14 weeks 0 days),transabdominal approach; single or first gestation MATERNAL ASSESSMENT ----- Physical Exam Weight 77 kg. BMI 31.09 kg/m METHOD ----- Transabdominal ultrasound examination ----- [place] . Number of fetuses: 1 DATING ----- Cycle:regular cycle Method of dating:based on stated ALDO GA by prior [id number] w + 1 d ALDO by prior assessment:12/08/2024 Ultrasound examination on:08/05/2024 GA by U/S based upon:AC, BPD, EFW, Femur, HC GA by U/S22 w + 3 d ALDO by U/S:12/06/2024 Assigned:based on stated ALDO, selected on 08/05/2024 Assigned GA22 w + 1 d Assigned ALDO:12/08/2024 BIOMETRY ----- BPD 55.4 mm 22w 6d75% Hadlock OFD 72.0 mm 24w 0d93% Padilla HC 205.0 mm 22w 4d58% Hadlock Cerebellum tr 24.6 mm 23w 3d95% Cobb Nuchal fold 4.0 mm AC 183.6 mm 23w 1d75% Hadlock Femur 36.3 mm 21w 4d20% Hadlock Humerus 33.4 mm 21w 2d21% Padilla HC / AC 1.12 29%Nicolaides Weight Calculation: EFW 508 g 22w 2d 60%Hadlock EFW (lb,oz) 1 lb 2 oz EFW by Hadlock ([id number]) Head / Face / Neck Biometry: Electrician Apprentice 4.8 mm CM 3.5 mm 4%Nicolaides Outer IOD 34.9 mm 22w 2d 28%Padilla Extremities / Bony Struc Biometry: FL / BPD 0.66 FL / HC 0.18 FL / AC 0.20 GENERAL EVALUATION ----- Cardiac activity present. FHR 146 bpm. movements: present.Presentation: cephalic Placenta: Placental site: anterior Umbilical cord: Cord vessels: 3 vessel cord. Insertion site: placentalinsertion: normal Amniotic fluid: Amount of AF: normal amount. MVP 7.2 cm ANATOMY ----- The following structures appear normal: Head / Neck Cranium. Lateral ventricles. Choroid plexus.Midline falx. Cavum septi pellucidi. Cerebellum. Cisterna magna. Nuchal fold. Face Lips. Profile. Nose. Palate. Orbits. Heart / Thorax 4-chamber view. RVOT view. LVOT view. 3-vesselview. 2-drsply-agelaya view. Situs. Aortic arch view. Ductal arch view. Superior vena cava. Inferiorvena cava. High short axis view. Cardiac rhythm. Diaphragm. Abdomen Abdominal wall. Stomach. Kidneys. Bladder. Spine Cervical spine. Thoracic spine. Lumbar spine.Sacral spine. Extremities / Arms. Right hand. Left hand. Legs. Right foot.Left foot. Skeleton MATERNAL STRUCTURES ----- Cervix Visualized Approach - Transabdominal: Cervical length 44.7mm Right Ovary Not visualized Left Ovary Not visualized GROWTH OVERVIEW ----- Exam date GA BPD (mm) HC (mm) AC (mm) FL(mm) HL (mm) EFW (g) 08/05/2024 22w 1d 55.4 75% 205.0 58% 183.6 75%36.3 20% 33.4 21% 508 60% COMMENT ----- Patient's name and date of were verified by the ship wirer prior tothe exam . IMPRESSION ----- [place] @ 22w 1d referred for anatomical survey. - The biometry is consistent with dates. - Amniotic fluid indices are within normal limits. - The placenta is anterior with a central cord insertion and with noevidence of previa or low-lying placenta. - Visualized anatomy is unremarkable and no abnormality is suspectedat this time. A followup ultrasound at 32 weeks is recommended to check growth. Thank you for allowing us to participate in the care of your patient. us Damien Riley MD US ORDERABLES Final Result from Last 3 Months Insurance [place]
--- OUTSIDE RECORDS SUMMARY | 2024-10-08 16:44 | XMS_ITS | Referral Summary ---
Author Organization [facility] Address [address] [place] [address] Care Team Providers Care Regional Controller Name Role Phone Gabriella Sterling MD Primary Care Provider Allergies No known active allergies Medications , 1 mg-20 mcg (21)/75 mg (7) per tablet TK 1 T PO D 06/10/2019 Active lidocaine (LIDODERM) 5 % Place 1 patch on the skin daily for 14 days Remove & discard patch within 12 hours or as directed by MD. 14 patch 01/14/2023 Active methocarbamoL (ROBAXIN) 500 mg tablet Take 1 tablet (500 mg total) by mouth 2 (two) times a day 20 tablet 01/14/2023 Active Active Problems Problem Noted Date Diagnosed Date Urinary incontinence, post-void dribbling 2019 Nocturnal enuresis 08/30/2019 Urgency of urination 08/30/2019 Incomplete bladder emptying 08/30/2019 Urinary tract infection 11/10/2016 Overview (11/25/2016): UTI Acne 01/30/2015 Overview (10/07/2016): Acne Immunizations Immunization Administration Dates Next Due DTaP 07/15/2008, 5,06/02/2004,2003, 2003 HPV, Quadrivalent 03/26/2015,01/30/2015 Hep A, Pediatric 07/15/2008,01/02/2007 Hep B, Adolescent or Pediatric 06/02/2004,2003,2003,2003 HiB 10/25/2004,06/02/2004,2003 Hib (PRP-T) 2003 IPV 07/15/2008,06/02/2004,2003 ,2003 MMR 07/15/2008,10/25/2004 Meningococcal MCV4P (Menactra) 01/30/2015 Pneumococcal Conjugate 7-Valent 06/02/2004,07/29,2003 Tdap 01/30/2015 Varicella 07/15/2008,10/25/2004 Social History Tobacco Use Types Packs/Day Years Used Date Smoking Tobacco: Never Tobacco Cessation:Counseling Given: Not Answered Alcohol Use Standard Drinks/Week Comments Not Currently 0 (1 standard drink = 0.6 oz pur e alcohol) Personal Safety Answer Date Recorded Have you ever been in or are you currently in a harmful physical or emotional relationship or is someone making you feel afraid or unsafe? Denies 03/17/2023 Comments Unknown Sex and Gender Information Value Date Recorded Sex Assigned at Not on file Legal Sex Female 9:17 AM MINE INSPECTOR FEDERAL Gender Identity Female 12/12/2023 7:33 AM CDT Sexual Orientation Straight 12/12/2023 7: 33 AM CDT Last Filed Vital Signs Vital Sign Reading Time Taken Comments Blood Pressure 127/85 03/17/2023 9:29 PM CDT Pulse 103 03/17/2023 9:29 PM CDT Temperature 36.7 C (98 F) 03/17/2023 9:29 PM CDT Respiratory Rate 14 03/17/2023 9:29 PM CDT Oxygen Saturation 100% 03/17/2023 9:29 PM CDT Inhaled Oxygen Concentration - - Weight 75.8 kg (167 lb) 01/14/2023 1:47 PM CDT Height 157.5 cm (5' 2 ) 01/14/2023 1:47 PM CDT Body Mass Index 30.54 01/14/2023 1:47 PM CDT Plan of Treatment Not on file Insurance [facility] Care Teams Regional Controller Relationship Specialty Start Date End Date Gabriella Sterling MD PCP - General Family Medicine 01/14/23
--- OUTSIDE RECORDS SUMMARY | 2024-10-08 16:44 | XMS_ITS | Clinical Summary ---
Author Organization [facility] Address [address] [place] [address] Care Team Providers Care Hotel Reservationist Name Role Phone Gabriella Sterling MD Primary Care Provider [phone] Allergies No known active allergies Medications , [...] Conjugate 7-Valent 06/02/2004,07/29,2003 Tdap 01/30/2015 Varicella 07/15/2008,10/25/2004 Medical History Medical History Date Comments UTI (urinary tract infection) Family History Medical History Relation Name Comments Other Other 1 Family history of Anemia severe (Mother); Other Other 2 Family history of ADHD (brother); Other Other 3 Family history of Bipolar (brother); Relation Name Status Comments Other 1 Other 2 Other 3 Social History Tobacco Use Types Packs/Day Years [...] on file Legal Sex Female 9:17 AM SLEEP TECHNICIAN Gender Identity Female 12/12/2023 7:33 AM CDT Sexual Orientation Straight 12/12/2023 7: 33 AM CDT Obstetrics History Para Term AB IAB SAB Ectopic Multiple Livin g Live Births 1 Date Outcome GA Total Labor Labor/2nd/3rd Weight Sex Type Anes PTL Ashley A1 A5 Name Clin Last Filed Vital Signs Vital Sign Reading [...] 01/14/2023 1:47 PM CDT Plan of Treatment Health Maintenance Due Date Last Done Comments Cervical Cancer Screening 2003 Depression Screening 2003 Hepatitis C Screening 2003 Meningococcal B Vaccine (2 o f 2 - Bexsero SCDM 2-dose series) 02/20/2020 08/22/2019 Regular Well Visit/Exam 18-64 2021 DTaP/Tdap/Td Vaccine (7 - Td or Tdap) 01/30/2025 01/30/2015, 07/15/2008, 07/15/2008, Additional history exists Influenza Vaccine (Season Ended) 2025 05/06/2019, 05/31/2018, 07/01/2011, Additional history exists Hepatitis B Screening Completed 06/02/2004 , 2003, 2003, Additional history exists Pneumococcal vaccine <65 Completed 004, 2003, 2003 Varicella Vaccines Completed 07/15/2008, 10/25/2004 HPV Vaccines Completed 05/31/2018, 03/04, 01/30/2015 Meningococcal Vaccine Completed 08/22/2019, 015 Insurance [facility] Care Teams Hotel Reservationist Relationship Specialty Start Date End Date Gabriella Sterling MD PCP - General Family Medicine 01/14/23
[2024-10-08 16:48] VITALS: BMI 35.9
--- NOTE | 2024-10-08 16:48 | LDADM ---
This patient, Taryn Devine, was admitted to [facility] on 10/08/24 at 15:22. Patient/family oriented to hospital policies and general routines including ID bracelet, bed and alarms, visiting hours, pain management, procedures, bathroom and other care routines, personal items, smoking policy, room service/diet and guest tray routines, infant security routines, and visiting hours. Patient/Family are encouraged to report perceived risks to care and to ask questions if they do not understand what they are told or what they should do. See OBIX for further documentation.
[2024-10-08 16:57] LABS: Alanine Aminotransferase 15 U/L (6-35); Albumin Level 3.4 g/dL (3.5-5.1); Alkaline Phosphatase 123 U/L (38-126); Anion Gap 7 mmol/L (4-12); Aspartate Amino Transferase 15 U/L (14-36); Bilirubin,Total 0.1 mg/dL (0.2-1.3); Blood Urea Nitrogen 6 mg/dL (7-17); Calcium 8.7 mg/dL (8.4-10.2); Carbon Dioxide 24 mmol/L (22-30); Chloride 104 mmol/L (98-107); Estimated Glomerular Filt Rate > 60; Glucose 94 mg/dL (65-110); Potassium 3.7 mmol/L (3.4-5.0); Sodium 135 mmol/L (137-145)
--- NOTE | 2024-10-30 08:04 | P.PNOB_ITS ---
OB - Triage/Final Diagnosis Visit Information Comments/Additional reasons for admission: I have assessed the risk for this patient, Taryn Devine, and determined that she would benefit from observation care. Evaluation Laboratory results: Laboratory Tests 10/08/24 16:16 Sodium 135 L Potassium 3.7 Chloride 104 Carbon Dioxide 24 Anion Gap 7 BUN 6 L Creatinine 0.48 L Estim Creat Clear Calc Not Reportable Estimated GFR > 60 Glucose 94 Calcium 8.7 Total Bilirubin 0.1 L AST 15 ALT 15 Alkaline Phosphatase 123 Total Protein 7.0 Albumin 3.4 L Urine Color Yellow Urine Appearance Cloudy H Urine pH 6.5 Ur Specific [place] 1.023 Urine Protein Negative Urine Glucose (UA) Negative Urine Ketones Trace H Ur Blood (Man) Negative Urine Nitrate Negative Urine Bilirubin Negative Urine Urobilinogen 0.2 Leukocyte Esterase Rfl 1+ H Urine RBC 0-2 Urine WBC 11-20 H Ur Squamous Epith Cells Moderate Urine Bacteria 2+ H Urine Casts 0-2
--- NOTE | 2024-10-31 14:57 | P.PNOB_ITS ---
OB - Triage/Final Diagnosis Visit Information Comments/Additional reasons for admission: I have assessed the risk for this patient, Taryn Devine, and determined that she would benefit from observation care. Evaluation Laboratory results: Laboratory Tests 10/08/24 16:16 Sodium 135 L Potassium 3.7 Chloride 104 Carbon Dioxide 24 Anion Gap 7 BUN 6 L Creatinine 0.48 L Estim Creat Clear Calc Not Reportable Estimated GFR > 60 Glucose 94 Calcium 8.7 Total Bilirubin 0.1 L AST 15 ALT 15 Alkaline Phosphatase 123 Total Protein 7.0 Albumin 3.4 L Urine Color Yellow Urine Appearance Cloudy H Urine pH 6.5 Ur Specific [place] 1.023 Urine Protein Negative Urine Glucose (UA) Negative Urine Ketones Trace H Ur Blood (Man) Negative Urine Nitrate Negative Urine Bilirubin Negative Urine Urobilinogen 0.2 Leukocyte Esterase Rfl 1+ H Urine RBC 0-2 Urine WBC 11-20 H Ur Squamous Epith Cells Moderate Urine Bacteria 2+ H Urine Casts 0-2 Final Diagnosis (1) Vertigo: Code(s): R42 - Dizziness and giddiness Status: Inactive
== END 2024-10-08 17:03 | disposition home or self-care (01) ==
LOC: ANHOBPP 15:29
PROVIDERS: Admitting Provider Obstetrics & Gynecology; PCP Family Medicine; Visit Provider Obstetrics & Gynecology
DX: O26.893 Other specified pregnancy related conditions, third trimester (principal); R42 Dizziness and giddiness; Z3A.31 31 weeks gestation of pregnancy
CPT/HCPCS: 36415; 80053; 81001; G0378; G0379

== ENCOUNTER 2024-11-27 12:27 | Outpatient (CLI) | payer OTHER, SELFPAY ==
[2024-11-27 12:30] VITALS: BP 112/70; PULSE 103
--- OUTSIDE RECORDS SUMMARY | 2024-11-27 13:51 | XMS_ITS | Clinical Summary ---
Author Organization [facility] Address [address] [place] [address] Care Team Providers Care Sole Tier Name Role Phone Unavailable Primary Care Provider Unavailabl e Source Comments [facility],non-owned Affiliates and Associated Physician Practices is amultiple site organization consisting of ambulatory clinics and hospital sitesin [place], [place], [place] and [place]. This disclosure is being madepursuant to the Care Everywhere program and may not contain all information available regarding this patient. Last updated 18.[employer] [facility] Allergies No known active allergies Medications * Be aware that medications may not be up to date on this document. Alwaysverify current medications with the patient. doxylamine (Unisom) 25 MG tablet Take 1 [...] and heating? Not hard at all 05/07/2024 [facility] of Occupat ional Health - Occupational Stress [...] things needed for daily living? No 05/07/2024 Conley Depression Scale Answer Date Recorded Conley Depression Scale Total 0 05/07/2024 The thought [...] any time in the past 12 m [facility], were you homeless or living in a [facility] (including now)? No 05/07/2024 Estimated Date of Delivery Comme nts Yes 12/08/2024 Based on last me nstrual period of 03/03/2024 Sex and Gender Information Value Date Recorded Sex Assigned at Not on file Legal Sex Female 8:59 AM CDT Gender Identity Not on file Sexual Orientation Not on file Last Filed Vital Signs Vital Sign Reading Time Taken Comments Blood Pressure 134/85 05/07/2024 2:05 PM CAR RECORD CLERK Pulse 92 05/07/2024 2:05 PM CAR RECORD CLERK Temperature 36.9 C (98.5 F) 03/21/2018 9:16 AM CDT Respiratory Rate - - Oxygen Saturation - - Inhaled Oxygen Concentration - - Weight 78.9 kg (174 lb) 05/07/2024 2:05 PM CAR RECORD CLERK Height 158.8 cm (5' 2.5) 03/21/2018 9:16 AM CDT Body Mass Index [...] OB-ONE HOUR GLUCOSE 09/01/2024 OB-TDAP CURRENT 09/08/2024 OB-GROUP B STREP SCREEN 11/03/2024 INFLUENZA VACCINE (Season Ended) 2025 05/26/2021, 05/06/2019, [...] HEPATITIS C ANTIBODY Routine 05/07/2024 2:41 PM CAR RECORD CLERK Encounter for supervision of normal first in first trimester 9 weeks gestation of HIV-1 HIV-2 ANTIBODY + HIV P24 AG PANEL Routine 05/07/2024 2:41 PM CAR RECORD CLERK Encounter for supervision of normal first in first trimester 9 weeks gestation of from Last 3 Months or Most Recently Relevant to Health Maintenance Results * HIV-1 HIV-2 ANTIBODY + HIV P24 AG PANEL (05/07/2024 2:41 PM CAR RECORD CLERK) Pathologist [facility] HIV1/2 Ab + P24 Ag Non Reactive Non Reactive 05/07/2024 4:01 PM CAR RECORD CLERK [facility] Blood BLOOD SPECIMEN / Unknown Venipuncture / Unknown 05/07/2024 2:41 PM CAR RECORD CLERK 05/07/2024 3:14 PM CAR RECORD CLERK Narrative [facility] - 05/07/2024 4:01 PM CAR RECORD CLERK No Laboratory evidence of HIV infection. us Aleyda Alcala MD LAB - CHEMISTRY ORDERABLES Final Result Performing Organization Address City/[facility]/ZIP Co de Phone Number [facility] [address] [place] [address] * HEPATITIS C ANTIBODY (05/07/2024 2:41 PM CAR RECORD CLERK) [facility] HCV Antibody Screen Non Reactive Non Reactive 05/07/2024 4:03 PM CAR RECORD CLERK [facility] Blood BLOOD SPECIMEN / Unknown Venipuncture / Unknown 05/07/2024 2:41 PM CAR RECORD CLERK 05/07/2024 3:14 PM CAR RECORD CLERK Narrative [facility] - 05/07/2024 4:03 PM CAR RECORD CLERK Non Reactive - Antibodies to Hepatitis C virus (HCV) were not detected, result does not exclude early acute HCV infection. us Aleyda Alcala MD LAB - CHEMISTRY ORDERABLES Final Result [facility] [address] [place], [place] [id number] from Last 3 Months or Most Recently Relevant to Health Maintenance [place] [address]
--- OUTSIDE RECORDS SUMMARY | 2024-11-27 13:51 | XMS_ITS | Clinical Summary ---
Author Organization [facility] Address [address] [place] [address] Phone Care Team Providers Care Team Supervisor Name Role Phone Unavailable Primary Care Provider Unavailabl e Encounters Date Type Department Care Team Description 11/26/2024 External Device Data STL ABSTRACTION Provider, Abstract 11/22/2024 External Device Data STL ABSTRACTION Provider, Abstract 11/21/2024 External Device Data STL ABSTRACTION Provider, Abstract 11/20/2024 External Device Data STL ABSTRACTION Provider, Abstract 11/12/2024 9:00 AM CDT - 11/12/2024 11:59 PM CDT Hospital Encounter [facility] Maternal and Ground Floor [address] [facility] [address] [place] [address] Violeta Chaney MD Discharge Disposition: Home or Self Care 10/28/2024 Results Follow-Up [facility] Maternal and Medicine - Medical [place] [address] [place] [address] Laquita Shields MD CMV IGG AND IGM ANTIBODIES, TOXOPLASMOSIS AB IGG/IGM 10/17/2024 1:43 PM CDT - 10/17/2024 11:59 PM CDT Hospital Encounter [facility] Maternal and Health [facility] [address] [place] [address] Minerva Cárdenas MD Discharge Disposition: Home or Self Care 10/17/2024 Telephone [facility] Maternal Medicine [address] [address] [address] [place] [address] Violeta Chaney MD Labs Only 10/15/2024 External Device Data ST[facility] ABSTRACTION Provider, Abstract 09/18/2024 External Device Data [facility] ABSTRACTION Provider, Abstract 09/18/2024 External Device Data [facility] ABSTRACTION Provider, Abstract 09/07/2024 External Device Data [facility] ABSTRACTION Provider, Abstract 09/07/2024 External Device Data [facility] ABSTRACTION Provider, Abstract 09/04/2024 External Device Data [facility] ABSTRACTION Provider, Abstract from Last 3 Months Social History Tobacco [...] Orientation Not on file Plan of Treatment Health Maintenance Due Date Last Done Comments CHLAMYDIA SCREENING (ANNUAL) 11-24 YEARS 2014 HPV VACCINES (3 - 2-dose series) 08/02/2015 03/26/20 15, 01/30/2015 INFLUENZA VACCINE (#1) 2024 CERVICAL CANCER SCREENING 2024 HPV/Cotest (21-29) 2024 PAP SMEAR 2024 DTAP/TDAP/TD VACCINES (7 - T d or Tdap) 01/30/2025 01/30/2015, 07/15/2008, 10/25/2004, Additional history exists HEPATITIS B VACCINES Completed 06/02/2004, 2003, 2003, Additional history exists Procedures Procedure Name Priority Date/Time Associated Diagnosis Comments US OB FOLLOW UP PER FETUS Routine 11/12/2024 9:47 AM CDT Maternal obesity syndrome in third trimester Encounter for screening TOXOPLASMOSIS AB IGG/IGM Routine 10/21/2024 10:31 AM CDT Echogenic focus of bowel of fetus affecting antepartum care of mother, single or unspecified fetus CMV IGG AND IGM ANTIBODIES Routine 10/21/2024 10:31 AM CDT Echogenic focus of bowel of fetus affecting antepartum care of mother, single or unspecified fetus US OB FOLLOW UP PER FETUS Routine 10/17/2024 2:31 PM CDT Maternal obesity syndrome in third trimester Encounter for screening from Last 3 Months Results * US OB FOLLOW UP PER FETUS (11/12/2024 9:47 AM CDT) Only the most recent of2 resultswithin the time period is included. Anatomical Region Laterality Modality Pelvis Ultrasound 11/12/2024 9:12 AM CDT Narrative 11/12/2024 9:46 AM CDT STL FOLLOW UP ----- Pat. Name: LIDA HORTON Study Date: 11/12/2024 9:12am Pat. NO: [id number] Referring MD: MARILYN RILEY MD Site: [facility] [place] Binder Coverer: Ce Andres RDMS, RVT : 2005 Age: 19 ----- INDICATION ----- Screening Follow-Up Maternal Obesity (BMI<40) Complicating Abnormal Finding on Previous Ultrasound CODING ----- Diagnoses Z3A.36: Weeks of gestation O99.213: Obesity complicating Z36.3: Encounter for screening for malformations Z3A.36: Weeks of gestation O99.213: Obesity complicating Z36.2: Encounter for other screening follow-up O28.3: Abnormal ultrasonic finding on screening of mother Procedures 11650: Ultrasound, uterus, real time with image documentation, follow up, transabdominal approach per fetus HISTORY ----- OB History 3. Para 1 [place] children born living (T) 1. Miscarriages 1 T1A1L1 METHOD ----- Transabdominal ultrasound examination ----- [place] . Number of fetuses: 1 DATING ----- Cycle: regular cycle GA by prior assessment 36 w + 2 d ALDO by prior assessment: 12/08/2024 Ultrasound examination on: 11/12/2024 GA by U/S based upon: AC, BPD, EFW, Femur, HC GA by U/S 37 w + 0 d ALDO by U/S: 12/03/2024 Method of dating: Restore dating from previous exam Assigned: based on stated ALDO, selected on 08/05/2024 Assigned GA 36 w + 2 d Assigned ALDO: 12/08/2024 BIOMETRY ----- BPD 94.1 mm 38w 2d 96% Hadlock OFD 115.8 mm -/- 93% Padilla HC 333.8 mm 38w 1d 67% Hadlock AC 337.0 mm 37w 4d 90% Hadlock Femur 66.0 mm 34w 0d 5% Hadlock HC / AC 0.99 32% Nicolaides Weight Calculation: EFW 3,058 g 37w 1d 68% Hadlock EFW (lb,oz) 6 lb 12 oz EFW by Hadlock ([id number]) Extremities / Bony Struc Biometry: FL / BPD 0.70 FL / HC 0.20 FL / AC 0.20 GENERAL EVALUATION ----- Cardiac activity present. FHR 149 bpm. movements: present. Presentation: cephalic Placenta: Placental site: anterior Umbilical cord: Cord vessels: 3 vessel cord. Insertion site: placental insertion: normal Amniotic fluid: Amount of AF: normal amount. MVP 5.8 cm. CAROLE 19.9 cm. Q1 5.8 cm, Q2 4.9 cm, Q3 4.1 cm, Q4 5.1 cm ANATOMY ----- Abdomen Liver: echogenic lesion measuring 10.0mm x 2.4 mm x 3.7 mm The following structures appear normal: Head / Neck Cranium. Lateral ventricles. Choroid plexus. Midline falx. Cavum septi pellucidi. Cerebellum. Cisterna magna. Heart / Thorax 4-chamber view. RVOT view. LVOT view. Cardiac rhythm. Diaphragm. Abdomen Stomach. Kidneys. Bladder. GROWTH OVERVIEW ----- Exam date GA BPD (mm) HC (mm) AC (mm) FL (mm) HL (mm) EFW (g) 08/05/2024 22w 1d 55.4 75% 205.0 58% 183.6 75% 36.3 20% 33.4 21% 508 60% 10/17/2024 32w 4d 86.6 95% 313.4 79% 289.3 61% 61.0 17% 2,089 52% 11/12/2024 36w 2d 94.1 96% 333.8 67% 337.0 90% 66.0 5% 3,058 68% COMMENT ----- Patient's name and date of were verified by the steel floor pan placing supervisor prior to the exam IMPRESSION ----- Impression: [place] viable intrauterine at 36w 2d in cephalic presentation. Estimated weight is 3058 g (68%ile) with abdominal circumference at the 90%ile. Amniotic fluid volume is normal amount, (Amniotic fluid index = 19.9 cm, maximum vertical pocket = 5.8 cm). No major malformations identified within the limitations of ultrasound. Known echogenic focus in liver. Recommendation: Follow up as clinically indicated. Thank you for inviting us to participate in your patient's care Procedure Note Angie Alberts MD - 11/12/2024 ST FOLLOW UP ----- Lisa. Name:ALFONZO HORTONEStudy Date:11/12/2024 9:12am Pat. NO: [id number] MD:MARILYN RILEY MD [facility]:Ce Andres RDMS, RVT :2005Age:19 ----- INDICATION ----- Screening Follow-Up Maternal Obesity (BMI<40) Complicating Abnormal Finding on Previous Ultrasound CODING ----- Diagnoses Z3A.36: Weeks of gestation O99.213: Obesity complicating Z36.3: Encounter for screening formalformations Z3A.36: Weeks of gestation O99.213: Obesity complicating Z36.2: Encounter for other screeningfollow-up O28.3: Abnormal ultrasonic finding on antenatalscreening of mother Procedures 46381: Ultrasound, uterus, real time withimage documentation, follow up, transabdominal approach per fetus HISTORY ----- OB History 3. Para 1 [place] children born living (T) 1. Miscarriages1 T1A1L1 METHOD ----- Transabdominal ultrasound examination ----- [place] . Number of fetuses: 1 DATING ----- Cycle:regular cycle GA by prior [id number] w + 2 d ALDO by prior assessment:12/08/2024 Ultrasound examination on:11/12/2024 GA by U/S based upon:AC, BPD, EFW, Femur, HC GA by U/S37 w + 0 d ALDO by U/S:12/03/2024 Method of dating:Restore dating from previous exam Assigned:based on stated ALDO, selected on 08/05/2024 Assigned GA36 w + 2 d Assigned ALDO:12/08/2024 BIOMETRY ----- BPD 94.1 mm 38w 2d 96%Hadlock OFD 115.8 mm -/- 93%Padilla HC 333.8 mm 38w 1d 67%Hadlock AC 337.0 mm 37w 4d 90%Hadlock Femur 66.0 mm 34w 0d 5%Hadlock HC / AC 0.99 32%Nicolaides Weight Calculation: EFW 3,058 g 37w 1d68% Hadlock EFW (lb,oz) 6 lb 12 oz EFW by Hadlock ([id number]) Extremities / Bony Struc Biometry: FL / BPD 0.70 FL / HC 0.20 FL / AC 0.20 GENERAL EVALUATION ----- Cardiac activity present. FHR 149 bpm. movements: present.Presentation: cephalic Placenta: Placental site: anterior Umbilical cord: Cord vessels: 3 vessel cord. Insertion site: placentalinsertion: normal Amniotic fluid: Amount of AF: normal amount. MVP 5.8 cm. CAROLE 19.9 cm. Q15.8 cm, Q2 4.9 cm, Q3 4.1 cm, Q4 5.1 cm ANATOMY ----- Abdomen Liver: echogenic lesion measuring 10.0mm x 2.4 mmx 3.7 mm The following structures appear normal: Head / Neck Cranium. Lateral ventricles. Choroid plexus.Midline falx. Cavum septi pellucidi. Cerebellum. Cisterna magna. Heart / Thorax 4-chamber view. RVOT view. LVOT view. Cardiacrhythm. Diaphragm. Abdomen Stomach. Kidneys. Bladder. GROWTH OVERVIEW ----- Exam date GA BPD (mm) HC (mm) AC (mm) FL(mm) HL (mm) EFW (g) 08/05/2024 22w 1d 55.4 75% 205.0 58% 183.6 75%36.3 20% 33.4 21% 508 60% 10/17/2024 32w 4d 86.6 95% 313.4 79% 289.3 61%61.0 17% 2,089 52% 11/12/2024 36w 2d 94.1 96% 333.8 67% 337.0 90%66.0 5% 3,058 68% COMMENT ----- Patient's name and date of were verified by the steel floor pan placing supervisor prior tothe exam IMPRESSION ----- Impression: [place] viable intrauterine at 36w 2d in cephalicpresentation. Estimated weight is 3058 g (68%ile) with abdominal circumference atthe 90%ile. Amniotic fluid volume is normal amount, (Amniotic fluid index = 19.9 cm,maximum vertical pocket = 5.8 cm). No major malformations identified within the limitations of ultrasound. Known echogenic focus in liver. Recommendation: Follow up as clinically indicated. Thank you for inviting us to participate in your patient's care us Violeta Chaney MD US ORDERABLES Final R esult * TOXOPLASMOSIS AB IGG/IGM (10/21/2024 10:31 AM CDT) Pathologist [facility] TOXOPLASMOSIS IGG <7.20 IU/mL [facility] Comment: IU/mL Interpretation ------ <7.20 Negative 7.20-8.79 Equivocal >8.79 Positive TOXOPLASMOSIS IGM <8.00 AU/mL [facility] Comment: AU/mL Interpretation ----- <8.00 Negative 8.00-9.99 Equivocal >9.99 Positive Physicians are advised to interpret the results of anti-Toxoplasma IgM tests with caution, and should not rely on any single test result as the sole determinant in diagnosing recently acquired infection. TOXOPLASMA INTERP [facility] Comment: No antibodies to Toxoplasma gondii detected. Test Performed at: [facility] [address] [place] [address] Pankaj Hyde MD Blood 10/21/2024 10:3 1 AM CDT 10/21/2024 10:31 AM CDT Violeta Chaney MD CHEMISTRY ORDERABLES Fi nal Result [facility] [phone] [facility] [address] [place] [address] * CMV IGG AND IGM ANTIBODIES (10/21/2024 10:31 AM CDT) Pathologist [facility] CMV IGG <0.60 U/mL [facility] Comment: U/mL Interpretation ----- <0.60 Negative 0.60-0.69 Equivocal > or = 0.70 Positive A positive result indicates that the patient has antibody to CMV. It does not differentiate between an active or past infection. CMV IGM <30.00 AU/mL [email or web address] Comment: AU/mL Interpretation ----- <30.00 No Antibody Detected 30.00-34.99 Equivocal > or = 35.00 Antibody Detected Results from any one IgM assay should not be used as a sole determinant of a current or recent infection. Because an IgM test can yield false positive results and low level IgM antibody may persist for more than 12 months post infection, reliance on a single test result could be misleading. Acute infection is best diagnosed by demonstrating the conversion of IgG from negative to positive. If an acute infection is suspected, consider obtaining a new specimen and submit for both IgG and IgM testing in two or more weeks. Test Performed at: [email or web address] [address] [place] [id number] Pankaj Hyde MD Blood 10/21/2024 10:3 1 AM CDT 10/21/2024 10:31 AM CDT us Violeta Chaney MD CHEMISTRY ORDERABLES [facility] Result [facility] [phone] [facility] [address] [place] [address] from Last 3 Months Insurance [place]
--- OUTSIDE RECORDS SUMMARY | 2024-11-27 13:51 | XMS_ITS | Clinical Summary ---
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
--- OUTSIDE RECORDS SUMMARY | 2024-11-27 13:51 | XMS_ITS | Encounter Summary ---
Author Organization [facility] Address [address] [place] [address] Care Team Providers Care Site Surveyor Name Role Phone Unavailable Primary Care Provider Unavailabl e Encounter Details Date Type Department Care Team (Latest Contact Info) Description 10/28/2024 Results Follow-Up [facility] Maternal and Medicine - [facility] [address] [place] [address] Laquita Shields MD [address] [place] [address] CMV IGG AND IGM ANTIBODIES, TOXOPLASMOSIS AB IGG/IGM Social History Tobacco Use Types Packs/Day Years Used Date Smoking Tobacco: Never Assessed Adolescent Education Answer Date Record ed Getting School Help Needed Not on file 02/03 Comments Unknown Sex and Gender Information Value Date Recorded Sex Assigned at Not on file Legal Sex Female 4:17 PM CDT Gender Identity Not on file Sexual Orientation Not on file documented as of this encounter Plan of Treatment Not on file documented as of this encounter Visit Diagnoses Not on filedocumented in this encounter
--- OUTSIDE RECORDS SUMMARY | 2024-11-27 13:51 | XMS_ITS | Encounter Summary ---
Author Organization [facility] Address [address] [place] [address] Care Team Providers Care Nurse Unit Manager Name Role Phone Unavailable Primary Care Provider Unavailabl e Encounter Details Date Type Department Care Team (Late st Contact Info) Description 11/26/2024 External Device Data [facility] ABSTRACTION Provider, Abstract NO ADDRESS ON FILE Social History Tobacco Use Types Packs/Day Years [...]
--- OUTSIDE RECORDS SUMMARY | 2024-11-27 13:51 | XMS_ITS | Referral Summary ---
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
--- OUTSIDE RECORDS SUMMARY | 2024-11-27 13:51 | XMS_ITS ---
Author Name [facility] Address [address] [place] [address] Phone Organization [facility] Address [address] [place] [address] Phone Care Team Providers Care Transit Man Name Role Phone [facility] Unavailable [phone] WAYNE HANKS Unavailable ALLERGIES, ADVERSE REACTIONS AND ALERTS Allergy Name Allergy Date Allergy Status Allergy Severity Allergy Reaction NO KNOWN DRUG ALLERGIES MEDICATIONS RxNorm Brand Name Prescription Ordered Value Order Unit Start Date Date Status Fill Status Indications [id number] amoxicill in-pot clavulana te 875-125 mg tablet [...] if ever smoked Sex:Female CARE TEAM INFORMATION Transit Man Provider ID Role Location Phone [facility] [address] [place] [address] WAYNE TUTTLE [phone] NURSE PRACTITIONER [address] [place] [address]
[2024-11-27 14:04] LABS: OBXCEM ROM Plus Negative (Negative)
== END 2024-11-27 14:03 | disposition home or self-care (01) ==
LOC: ANHOBOP 13:45 → ANHOBPP 13:46
PROVIDERS: Visit Provider Obstetrics & Gynecology
DX: O42.90 Premature rupture of membranes, unspecified as to length of time between rupture and onset of labor, unspecified weeks of gestation (principal); Z3A.00 Weeks of gestation of pregnancy not specified
CPT/HCPCS: 59025; 84112; 99199

== ENCOUNTER 2024-12-05 13:28 | Inpatient (IN) | payer OTHER, SELFPAY ==
[2024-12-05] VITALS (127 sets, daily range): BP systolic 86–138; BP diastolic 40–79; PULSE 85–130; TEMP 36.5–36.9; O2SAT 98–100
--- OUTSIDE RECORDS SUMMARY | 2024-12-05 14:11 | XMS_ITS | Referral Summary ---
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
--- OUTSIDE RECORDS SUMMARY | 2024-12-05 14:11 | XMS_ITS | Clinical Summary ---
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
--- OUTSIDE RECORDS SUMMARY | 2024-12-05 14:11 | XMS_ITS | Clinical Summary ---
Author Organization [facility] Address [address] [place] [address] Phone Care Team Providers Care Abstract Checker Name Role Phone Unavailable Primary Care Provider Unavailabl e Encounters Date Type Department Care Team Description 11/26/2024 External Device Data STL ABSTRACTION Provider, Abstract 11/22/2024 External Device Data STL ABSTRACTION Provider, Abstract 11/21/2024 External Device Data STL ABSTRACTION Provider, Abstract 11/20/2024 External Device Data STL ABSTRACTION Provider, Abstract 11/12/2024 9:00 AM CDT - 11/12/2024 11:59 PM CDT Hospital Encounter [facility] Maternal and Ground Floor [facility] [address] [place] [address] Violeta Chaney MD Discharge Disposition: Home or Self Care 10/28/2024 Results Follow-Up [facility] Maternal and Medicine - Medical [place] [address] [facility] [address] [place] [address] Laquita Shields MD CMV IGG AND IGM ANTIBODIES, TOXOPLASMOSIS AB IGG/IGM 10/17/2024 1:43 PM CDT - 10/17/2024 11:59 PM CDT Hospital Encounter [facility] Maternal and Health [facility] [address] [place] [address] Minerva Cárdenas MD Discharge Disposition: Home or Self Care 10/17/[address] [facility] Maternal Medicine [address] [facility] [address] [address] [facility] [address] [place] [address] Violeta Chaney MD Labs Only 10/15/2024 External [...] HORTON Study Date: 11/12/2024 9:12am Pat. NO: [id number] Referring MD: MARILYN RILEY MD Site: [facility] Provider Relations Specialist: Ce Andres RDMS, RVT : 2005 Age: 19 ----- INDICATION ----- Screening Follow-Up Maternal Obesity (BMI<40) Complicating Abnormal Finding on Previous Ultrasound CODING ----- Diagnoses Z3A.36: Weeks of gestation O99.213: Obesity complicating Z36.3: Encounter for screening for malformations Z3A.36: Weeks of gestation O99.213: Obesity complicating Z36.2: Encounter for other screening follow-up O28.3: Abnormal ultrasonic finding on screening of mother Procedures 29989: Ultrasound, uterus, real time with image documentation, [...] 6 lb 12 oz EFW by Hadlock ([id number]) Extremities / Bony Struc Biometry: FL / [...] and date of were verified by the screen printing machine operator helper prior to the exam IMPRESSION ----- Impression: [...] Lisa. Name:ALFONZO HORTONEStudy Date:11/12/2024 9:12am Pat. NO: [id number] MD:MARILYN RILEY MD [facility]:Ce Andres RDMS, RVT :2005Age:19 ----- INDICATION ----- Screening Follow-Up Maternal Obesity (BMI<40) Complicating Abnormal Finding on Previous Ultrasound CODING ----- Diagnoses Z3A.36: Weeks of gestation O99.213: Obesity complicating Z36.3: Encounter for screening formalformations Z3A.36: Weeks of gestation O99.213: Obesity complicating Z36.2: Encounter for other screeningfollow-up O28.3: Abnormal ultrasonic finding on antenatalscreening of mother Procedures 09250: Ultrasound, uterus, real time withimage documentation, follow up, transabdominal approach per fetus HISTORY ----- OB History 3. Para 1 [place] children born living (T) 1. Miscarriages1 T1A1L1 METHOD ----- Transabdominal ultrasound examination ----- [place] . Number of fetuses: 1 DATING ----- Cycle:regular cycle GA by prior [id number] w + 2 d ALDO by prior [...] 6 lb 12 oz EFW by Hadlock ([id number]) Extremities / Bony Struc Biometry: FL / [...] and date of were verified by the screen printing machine operator helper prior tothe exam IMPRESSION ----- Impression: [place] [...] AB IGG/IGM (10/21/2024 10:31 AM CDT) Pathologist [facility] TOXOPLASMOSIS IGG <7.20 IU/mL [facility] Comment: IU/mL Interpretation ------ <7.20 Negative 7.20-8.79 Equivocal >8.79 Positive TOXOPLASMOSIS IGM <8.00 AU/mL [facility] Comment: AU/mL Interpretation ----- <8.00 Negative 8.00-9.99 Equivocal >9.99 Positive Physicians are advised to interpret the results of anti-Toxoplasma IgM tests with caution, and should not rely on any single test result as the sole determinant in diagnosing recently acquired infection. TOXOPLASMA INTERP [facility] Comment: No antibodies to Toxoplasma gondii detected. Test Performed at: [facility] [address] [place] [address] Pankaj Hyde MD Blood 10/21/2024 10:3 1 AM CDT 10/21/2024 10:31 AM CDT Violeta Chaney MD CHEMISTRY ORDERABLES Fi nal Result [facility] [phone] [facility] [address] [place] [address] * CMV IGG AND IGM ANTIBODIES (10/21/2024 10:31 AM CDT) Pathologist [facility] CMV IGG <0.60 U/mL [facility] Comment: U/mL Interpretation ----- <0.60 Negative 0.60-0.69 Equivocal > or = 0.70 Positive A positive result indicates that the patient has antibody to CMV. It does not differentiate between an active or past infection. CMV IGM <30.00 AU/mL [facility] Comment: AU/mL Interpretation ----- <30.00 No [...] two or more weeks. Test Performed at: [facility] [address] [place] [address] Pankaj Hyde MD Blood 10/21/2024 10:3 1 AM CDT 10/21/2024 10:31 AM CDT us Violeta Chaney MD CHEMISTRY ORDERABLES Counts include 234 beds at the [facility] Result [facility] [phone] [facility] [address] [place] [address] from Last 3 Months Insurance [employer] [place] [employer] [place] Address: [address] [address]
--- OUTSIDE RECORDS SUMMARY | 2024-12-05 14:11 | XMS_ITS | Encounter Summary ---
Author Organization [facility] Address [address] [place] [address] Care Team Providers Care Denitrator Operator Name Role Phone Unavailable Primary Care Provider Unavailabl e Encounter Details Date Type Department Care Team (Latest Contact Info) Description 10/28/2024 Results Follow-Up [facility] Maternal and Medicine - [facility] [address] [place] [address] Laquita Shields MD [address] [place] [address] CMV IGG AND IGM ANTIBODIES, [...]
--- OUTSIDE RECORDS SUMMARY | 2024-12-05 14:11 | XMS_ITS | Clinical Summary ---
Author Organization [facility] Address [address] [place] [address] Care Team Providers Care Heeler Name Role Phone Unavailable Primary Care Provider Unavailabl e Source Comments [facility],non-owned Affiliates and Associated Physician Practices is amultiple site organization consisting of ambulatory clinics and hospital sitesin [place], [place], [place] and [place]. This disclosure is being madepursuant to the Care Everywhere program and may not contain all information available regarding this patient. Last updated 18.[facility] Allergies No known active allergies Medications * [...] and heating? Not hard at all 05/07/2024 [facility] [place] of Occupat ional Health - Occupational Stress [...] things needed for daily living? No 05/07/2024 Zillah Depression Scale Answer Date Recorded Zillah Depression Scale Total 0 05/07/2024 The thought [...] time in the past 12 m [facility], were you homeless or living in a nursing home (including now)? No 05/07/2024 Estimated Date of [...] Comments Blood Pressure 134/85 05/07/2024 2:05 PM SHOWROOM CONSULTANT Pulse 92 05/07/2024 2:05 PM SHOWROOM CONSULTANT Temperature 36.9 C (98.5 F) 03/21/2018 9:16 AM CDT Respiratory Rate - - Oxygen Saturation - - Inhaled Oxygen Concentration - - Weight 78.9 kg (174 lb) 05/07/2024 2:05 PM SHOWROOM CONSULTANT Height 158.8 cm (5' 2.5) 03/21/2018 9:16 [...] OB-ONE HOUR GLUCOSE 09/01/2024 OB-TDAP CURRENT 09/08/2024 09/28/2022, OB-GROUP B STREP SCREEN 11/03/2024 INFLUENZA VACCINE [...] HEPATITIS C ANTIBODY Routine 05/07/2024 2:41 PM SHOWROOM CONSULTANT Encounter for supervision of normal first in first trimester 9 weeks gestation of HIV-1 HIV-2 ANTIBODY + HIV P24 AG PANEL Routine 05/07/2024 2:41 PM SHOWROOM CONSULTANT Encounter for supervision of normal first in first trimester 9 weeks gestation of from Last 3 Months or Most Recently Relevant to Health Maintenance Results * HIV-1 HIV-2 ANTIBODY + HIV P24 AG PANEL (05/07/2024 2:41 PM SHOWROOM CONSULTANT) HIV1/2 Ab + P24 Ag Non Reactive Non Reactive 05/07/2024 4:01 PM SHOWROOM CONSULTANT [facility] Blood BLOOD SPECIMEN / Unknown Venipuncture / Unknown 05/07/2024 2:41 PM SHOWROOM CONSULTANT 05/07/2024 3:14 PM SHOWROOM CONSULTANT Narrative [facility] - 05/07/2024 4:01 PM SHOWROOM CONSULTANT No Laboratory evidence of HIV infection. us Aleyda Alcala MD LAB - CHEMISTRY ORDERABLES Final Result Performing Organization Address City/[facility]/ZIP Co de Phone Number [facility] [address] [place] [phone] * HEPATITIS C ANTIBODY (05/07/2024 2:41 PM SHOWROOM CONSULTANT) HCV Antibody Screen Non Reactive Non Reactive 05/07/2024 4:03 PM SHOWROOM CONSULTANT [facility] Blood BLOOD SPECIMEN / Unknown Venipuncture / Unknown 05/07/2024 2:41 PM SHOWROOM CONSULTANT 05/07/2024 3:14 PM SHOWROOM CONSULTANT Narrative [facility] - 05/07/2024 4:03 PM SHOWROOM CONSULTANT Non Reactive - Antibodies to Hepatitis C virus (HCV) were not detected, result does not exclude early acute HCV infection. us Aleyda Alcala MD LAB - CHEMISTRY ORDERABLES Final Result [facility] [address] [place] [address] from Last 3 Months or Most Recently Relevant to Health Maintenance [place] [address]
--- OUTSIDE RECORDS SUMMARY | 2024-12-05 14:11 | XMS_ITS ---
Author Name [facility] Address [address] [place] [address] Phone Organization [facility] Address [address] [place] [address] Phone Care Team Providers Care Health Information Technologist Name Role Phone [facility] Unavailable [phone] WAYNE HANKS Unavailable ALLERGIES, ADVERSE REACTIONS AND ALERTS Allergy Name Allergy Date Allergy Status Allergy Severity Allergy Reaction NO KNOWN DRUG ALLERGIES MEDICATIONS RxNorm Brand Name Prescription Ordered Value Order Unit Start Date Date Status Fill Status Indications 985720 amoxicill in-pot clavulana te 875-125 mg tablet [...] if ever smoked Sex:Female CARE TEAM INFORMATION Health Information Technologist Provider ID Role Location Phone [facility] OTHER [address] [place] [address] WAYNE TUTTLE [phone] NURSE PRACTITIONER [address] [place] [address]
[2024-12-05 15:33] LABS: Basophils Percent Auto 0.3 % (0.2-1.2); Eosinophils Percent Auto 0.4 % (0-4.4); Hematocrit 35.9 % (37.0-47.0); Hemoglobin 11.3 g/dL (12.0-15.0); Immature Granulocyte Absolute 0.08 K/mm3 (0.00-0.031); Immature Granulocyte Percent A 0.8 % (0-0.5); Lymphocytes Absolute Auto 1.59 K/mm3 (0.9-3.2); Lymphocytes Percent Auto 15.8 % (18.3-44.2); Mean Corpuscular HGB Conc 31.5 g/dl (32-36); Mean Corpuscular Hemoglobin 26.8 pg (26-34); Mean Corpuscular Volume 85.1 fl (80-100); Mean Platelet Volume 9.2 fl (7.4-10.4); Monocytes Absolute Auto 0.6 K/mm3 (0.1-0.6); Monocytes Percent Auto 6.3 % (2.6-8.5); Neutrophils Absolute Auto 7.7 K/mm3 (1.3-6.7); Neutrophils Percent Auto 76.4 % (45.5-73.1); Platelet Count Result 276 k/mm3 (150-375); Red Blood Count 4.22 M/mm3 (4.2-5.4); White Blood Count 10.1 K/mm3 (4.5-10.0)
--- NOTE | 2024-12-05 16:04 | WPDHPUPDATE1 ---
History and Physical Update Update Date/Time: 12/05/24 16:04 History and Physical has been reviewed, including an updated exam of the patient. There are NO changes in the patient's condition. Risks, benefits, and alternatives have been discussed and questions answered. Patient agrees to proceed with procedure. She was admitted for IOL. History significant for echogenic focus on liver on third trimester ultrasound, nonspecific finding.
--- NOTE | 2024-12-05 16:07 | PM.OBPNLAB ---
Pain Control Date/time seen: 12/05/24 16:07 Comments: fht 145, cat 1, AROM clear.
[2024-12-05] MEDS: LACTATED RINGERS 1,000 ML 125 ML IV CONT ×2 (16:24→21:21)
[2024-12-05 16:36] LABS: HIV 1/2 Ab P24 Ag Result Negative (Negative)
--- NOTE | 2024-12-05 16:51 | P.PNAN_ITS ---
Anes - Eval Pre Procedure Procedure: Labor Epidural Date/Time: 12/05/24 16:51 Surgeon: Valeria Preop Diagnosis: Labor Pain Pre Op Diagnosis: IOL Patient Data Age: 19 Gender: F Height: Weight: Last Vital Signs Pulse 108 H 12/05/24 16:46 BP 130/57 L 12/05/24 16:46 Allergies Allergy/AdvReac Type Severity Reaction Status Date / Time No Known Allergies Allergy Verified 12/03/24 11:04 Home Medications ?Medication ?Instructions ?Recorded ?Confirmed ?Type docosahexaenoic acid 200 mg 200 mg PO DAILY 05/22/24 11/07/24 History capsule ( DHA) Laboratory Tests 12/05/24 15:23 WBC 10.1 H K/mm3 (4.5-10.0) RBC 4.22 M/mm3 (4.2-5.4) Hgb 11.3 L g/dL (12.0-15.0) Hct 35.9 L % (37.0-47.0) MCV 85.1 fl (80-100) MCH 26.8 pg (26-34) MCHC 31.5 L g/dl (32-36) RDW 19.0 H % (11.5-14.5) Plt Count 276 k/mm3 (150-375) MPV 9.2 fl (7.4-10.4) Immature Gran % (Auto) 0.8 H % (0-0.5) Neut % (Auto) 76.4 H % (45.5-73.1) Lymph % (Auto) 15.8 L % (18.3-44.2) Sutton % (Auto) 6.3 % (2.6-8.5) Eos % (Auto) 0.4 % (0-4.4) Baso % (Auto) 0.3 % (0.2-1.2) Lymph # (Auto) 1.59 K/mm3 (0.9-3.2) Sutton # (Auto) 0.6 K/mm3 (0.1-0.6) Eos # (Auto) 0.0 K/mm3 (0-0.3) Baso # (Auto) 0.0 K/mm3 (0.0-0.1) Abs Immat Gran (auto) 0.08 H K/mm3 (0.00-0.031) Absolute Neuts (auto) 7.7 H K/mm3 (1.3-6.7) Absolute Nucleated RBC 0.000 K/mm3 (0.0-0.012) Nucleated RBC % 0.0 % (0.0-0.2) HIV 1&2 Ab/P24 Ag 4thGn Negative (Negative) Blood Type O Positive Antibody Screen Negative : gestational age (, ALDO 12/08/24) Patient hx anesthesia problems: none Family hx anesthesia problems: none Results Review: All pre-operative results and documents have been reviewed as part of the pre- operative evaluation. [facility] Past Medical History Medical History Gonorrhea contact, treated depression Obesity Genitourinary disorder Urethral surgery for a tear Family History Family History Father Heart problem Mother Hypertension Diabetes mellitus Grandparent Lung cancer Cerebrovascular accident Social History Social History Smoking status: Never smoker Second hand tobacco smoke exposure: No Alcohol intake: never Substance use: never Do You Feel Safe in your Home?: Yes Lack of Transportation: No Lack of Food: Never True Current Housing: I Have Housing Concerned About Future Housing: No Difficulty Paying Gas/Electric Bills: No Difficulty Paying for Meds: No Currently Unemployed: No Education: High School Diploma/GED Difficulty w/ Childcare or Family Care: No Living arrangements: with family Occupation/Education: unemployed Gender identity (if verbalized by the patient): Female Sexual Orientation (if Verbalized by the Patient): Straight or Heterosexual Spiritual care concerns: No Exam Day of Procedure 12/05/24 16:51 Patient weight: normal Heart: regular rate and rhythm Lungs: normal air movement Airway: Mallampati scale class II Neurological: alert and oriented
--- NOTE | 2024-12-05 17:31 | LDADM ---
This patient, Taryn Devine, was admitted to Labor/Delivery/Recovery 107 on 12/05/24 at 13:28. Plans for labor, pain management and were discussed with patient. Patient/family oriented to hospital policies and general routines including ID bracelet, bed and alarms, visiting hours, pain management, procedures, bathroom and other care routines, personal items, smoking policy, room service/diet and guest tray routines, security routines, and visiting hours. Patient/Family are encouraged to report perceived risks to care and to ask questions if they do not understand what they are told or what they should do. See OBIX for further documentation.
[2024-12-05 18:26] LABS: Syphilis IgG/IgM Antibody Non-Reactive (Nonreactive)
[2024-12-06] VITALS (61 sets, daily range): BP systolic 87–135; BP diastolic 48–86; PULSE 64–138; RESP 16–18; TEMP 36.4–37.1; O2SAT 96–100
[2024-12-06] MEDS: OXYTOCIN 30 UNITS/NS 500 ML 30 UNITS/500 ML BAG 999 UNITS IV CONT (01:17)
--- NOTE | 2024-12-06 01:26 | PM.OBPRVD ---
OB - Vaginal Delivery Note Procedure Delivery date: 12/06/24 Induction method: AROM Delivery monitor: External FHT Route of delivery: Episiotomy description: None Laceration Description: None Specimen: No Quantitative Blood Loss (ml): 150 Anesthesia type: Epidural Disposition: Floor Complications: No immediate complications Baby Date of : 12/06/24 Time of : 01:15 Gestational Age by Date: 39 gender: Male Weight (pounds): 8 Weight (ounces): 6 presentation: vertex position: Left Occiput Anterior Placenta delivery description: Spontaneous Cord Vessel Description: 3 Vessels, Clamped/Cut and Delayed Cord Clamping score one minute: 8 score five minutes: 9 Narrative: She was admitted for [facility]. She was christine on admission and had augmentation by rupture of membranes. She continued to progress into active labor. She had epidural placed on request. She progressed to complete and delivered a male infant over intact perineum. Nose and mouth suctioned with bulb at perineum. 's shoulders delivered with gentle traction. Infant placed on maternal abdomen vigorously crying. Delayed cord clamping for one minute. Cord doubly clamped and cut. Pitocin started. Placenta delivered spontaneously and intact. She tolerated procedure well.
[2024-12-06] MEDS: OXYTOCIN 30 UNITS/NS 500 ML 30 UNITS/500 ML BAG 125 UNITS IV CONT (02:21)
[2024-12-06] MEDS: WITCH HAZEL 40 PADS 1 PAD TOPICAL (03:11)
[2024-12-06] MEDS: BENZOCAINE 20% AER SPR (*SP) 56 GM CAN 1 SPRAY TOPICAL (03:11)
--- NOTE | 2024-12-06 03:55 | OBPPTRN ---
Patient transferred to post room #277 via wheelchair. Support person- partner Inez present. Oriented to unit, room, information board, rooming in, admission packet and security measures. Patient verbalizes understanding.
[2024-12-06] MEDS: ACETAMINOPHEN 325 MG TABLET 650 MG PO ×4 (04:35→22:25)
[2024-12-06] MEDS: IBUPROFEN 600 MG TABLET PO ×4 (04:35→22:26)
--- NOTE | 2024-12-06 05:00 | PC.NURSE ---
Pt set up with hospital breast pump per request, plan is to pump and bottle feed with formula supplementation. Pt using 24mm flange comfortably and pumped 15mL. Education given on cleaning of pump parts and pumping to mirror baby's feeds and storage of breast-milk at this time.
--- NOTE | 2024-12-06 09:50 | PC.NURSE ---
Introductions were made, then consulted with patient to assess needs related to . Discussed with mother her plans to feed her and the experience so far. She pumped and bottle fed with her last baby and it is her intention to pump and bottle feed this time too. She has a breast pump at home and declines having any questions or concerns. Resources provided for inpatient and outpatient services with the feeding sheet, mom/baby guide and name written on the communication board. Mother voiced understanding of information and will call if there is a request for assistance. Reported to the Primary RN.?
--- NOTE | 2024-12-06 10:06 | PCCCNOTE ---
Care Coordination. Pt. referred to CC for possibly not having custody of other children. In our records, pt. had open case with first two children. Met with pt. at bedside and briefly with Inez CORDOBA, as well. Mother reports DCFS case is closed. I spoke with Elias Jones from DCFS hotline and she took pt.'s situation as information only. If case is open and DCFS needs to get involved, they will contact us before pt.'s DC tomorrow. Intake ID#[id number]. Pt. reports was setup with [facility], but now in [facility], so provided her with [facility] and [facility] information. PT. reports having all necessary baby care items. She plans to go home with FOB and children. She took list of resources. She is planning to breast feed and has pump. Message left to update RN, Tori. Pt. denies further CC needs.
[2024-12-06] MEDS: DOCUSATE SODIUM 100 MG CAPSULE PO ×2 (10:16→16:30)
[2024-12-06] MEDS: MULTIVIT/MIN/PREN/FOL AC/IRON TABLET 1 TAB PO (10:18)
--- NOTE | 2024-12-06 12:21 | PC.NURSE ---
1210: Pt called out and stated that she passed a blood clot (87 ml). RN assisted pt to the BR. Pt ambulated and voided without difficulty. No active heavy vaginal bleeding noted currently. Pericare done. Ice pack, tucks, dermoplast spray applied to perineum. Pt assisted back to bed. Fundus firm at u/u with no active bleeding or clots expressed. Pt resting comfortably and instructed to call RN if she feels increased vag. bleeding or clots again.
[2024-12-07] MEDS: ACETAMINOPHEN 325 MG TABLET 650 MG PO ×2 (04:10→12:17)
[2024-12-07] MEDS: IBUPROFEN 600 MG TABLET PO ×2 (04:11→12:17)
[2024-12-07 04:49] LABS: Hematocrit 31.4 % (37.0-47.0); Hemoglobin 9.6 g/dL (12.0-15.0)
--- NOTE | 2024-12-07 06:37 | P.DS_ITS ---
DS: Admitting Diagnosis Discharge Date 12/07/24 Admitting Diagnosis Induction of labor DS: Discharge Diagnosis Discharge Diagnosis (1) Vaginal delivery: Code(s): O80 - Encounter for full-term uncomplicated delivery Status: Acute OB - DS: Summary Hospital Course Hospital Course: She was admitted for induction of labor. She had assisted rupture of membranes and progressed into active labor. She had an uncomplicated vaginal delivery. She did well . She had adequate pain control, was ambulating well. Baby was doing well. She was discharged to home on day 1. OB Procedures : Ultrasound OB Procedures Intrapartum: Spontaneous Vag Delivery OB Procedures: : None Peripartum Data Infant Delivery Method: Natural Vaginal Laceration Description: None Episiotomy description: None complications: none Status at Discharge Functional status at discharge: independent ambulation Time Spent with Patient Time attestation: Total time spent providing and/or coordinating discharge services: Exam Const: General: cooperative Orientation/consciousness: oriented to person, oriented to place and oriented to time HENMT: Face/Nose/Sinus: Normal external nose present Eyes: General: appearance normal, both eyes and all related structures Resp: Effort & Inspection: normal respiratory effort GI: Inspection: normal to inspection Skin: General skin exam: normal color Neuro: General: oriented to person, oriented to place and oriented to time Extrem: General: normal to inspection and no calf tenderness Psych: Appearance: grossly normal Mental Status: mental status grossly normal DS: Data Data Completed and Pending Labs on day of discharge: Labs from last 24 hours 12/07/24 04:20 Hgb 9.6 L Hct 31.4 L Discharge Plan Discharge Attending physician on discharge: Damien Shaw Consulting providers: Sherry Celaya Discharging Clinician: Moriah Melendez Anticipated Discharge Date/Time: 12/07/24 10:00 Patient Disposition: Home Activity: may shower and pelvic rest Diet: regular Discharge Instructions: Education: Mom and Baby Guide Given to: Mother Follow-Up: Call your delivering provider's office for an appointment to be seen in: 6 Weeks Mom and baby should come to the [facility] for the follow-up appointment. Appointment Date/Time: December 10, 2024 at 11:00 am What to expect at your follow-up visit: Blood Pressure Check Physical Assessment Call [phone] if you are unable to keep your appointment time. BREAST CARE: * Wear a snug supportive bra. * For engorgement discomfort: Breast Feeding: * Apply warm moist washcloths * Express milk as needed to relieve engorgement * Wear loose clothing Bottle Feeding: * May apply ice packs * For sore nipples: * Identify correct latch-on * Apply warm moist washcloths before and after nursing * Air dry nipples after nursing * May apply Lansinoh cream to nipples EPISIOTOMY/PERINEAL CARE: * Until bleeding stops, use your gina bottle after urinating * Change your pad frequently throughout the day * You may take sitz baths several times a day (fill your bathtub with warm water and soak for 20 minutes.) Do NOT bathe in the water * No tub baths until seen by your physician - You may shower ACTIVITY: * Rest as much as possible. * Do not exercise or lift anything heavier than your baby (such as laundry or other children.) * Avoid stairs or driving as much as possible. * Do not put anything into the vagina. No douching, tampons, or sexual activity until seen by physician. NOTIFY PHYSICIAN IF YOU HAVE ANY QUESTIONS OR IF ANY OF THE FOLLOWING SYMPTOMS OCCUR: * If your episiotomy or incision becomes red, swollen, or more painful than what you have experienced in the hospital. * If your vaginal bleeding becomes foul smelling. * If your vaginal bleeding becomes more heavy than a period or if your bleeding changes from pink to bright red. However, you may pass an occasional walnut- sized clot once or twice for the first week . * If you experience a sharp, shooting pain in you calves. * If you discover a hard, reddened area on your breast or if you experience flu- like symptoms. DIET: * Eat regular, well-balanced meals. * Drink plenty of fluids daily. If , drink to thirst. Patient Instructions: Vaginal Delivery (DC) Patient Language: Greenlandic Stand Alone Forms: General Discharge Information Follow-up/Referrals: Damien Shaw MD [Physician] - Discharge Medications: New ibuprofen 800 mg tablet 800 mg PO TID Qty: 30 0RF acetaminophen 500 mg tablet 1,000 mg PO TID Qty: 60 0RF docusate sodium [Colace] 100 mg capsule 100 mg PO BID Qty: 90 0RF Continued DHA 200 mg capsule 200 mg PO DAILY Patient Comments: .. Date of admission: 12/05/24 13:28 Primary Care Provider: UNKNOWN,DOCTOR Admitting Provider: Damien Shaw Attending physician on admission: Damien Shaw Condition: Stable
--- NOTE | 2024-12-07 06:47 | WPDANLDPN2 ---
Anes-Prog Note L&D Date/Time: 12/07/24 06:47 Comfortable throughout: labor and delivery Neuraxial method: epidural Epidural/Spinal procedure site: clean & non-tender Neuro status: Neuro function grossly intact. Cardiovascular status: normal Respiratory status: normal Airway patency: baseline Mental status: baseline Post-Op hydration status: normal Vital Signs: Last Vital Signs Temp 97.8 F 12/06/24 20:20 Pulse 64 12/06/24 20:20 Resp 16 12/06/24 20:20 BP 87/57 L 12/06/24 20:20 Pulse Ox 97 12/06/24 20:20 O2 Del Method Room Air 12/04/24 16:00 Pain score (VAS): 0 I/O: Intake & Output 12/06/24 12/06/24 12/07/24 15:59 23:59 07:59 Intake Total 500 Balance 500 Post-procedural complaints: none Patient feedback: Patient satisfied with anesthetic care.
[2024-12-07 07:41] VITALS: BP 117/71; PULSE 61; RESP 18; TEMP 36.9; O2SAT 100
[2024-12-07] MEDS: POLYSACCHARIDE IRON COMPLEX 150 MG CAPSULE PO (08:12)
[2024-12-07] MEDS: DOCUSATE SODIUM 100 MG CAPSULE PO (08:12)
[2024-12-07] MEDS: MULTIVIT/MIN/PREN/FOL AC/IRON TABLET 1 TAB PO (08:12)
--- NOTE | 2024-12-07 09:06 | P.PNOB_ITS ---
OB - PN: Subj Subjective Date/time seen: 12/07/24 09:05 Narrative: PPD#1 Taryn reports doing well today. 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 Her pain is controlled. She is tolerating regular diet, voiding, passing gas, and ambulating without issues. She is breast feeding/pumping. She would like to go home today. OB - PN: Obj Data Labs 12/07/24 04:20 OB - PN A/P Assessment and Plan (1) Normal vaginal delivery: Code(s): O80 - Encounter for full-term uncomplicated delivery Status: Acute Plan day: 1 Plan: routine care Comments: - PO pain meds - Regular diet - Ambulation and hydration encouraged - Continue putting baby to breast q2-3hr - Care consult pending - Pt aware infant may need to stay for bili (getting check at 1300) - Pelvic rest; take meds as prescribed - ER return precautions: fever, n/v/abd pain, bleeding, HTN Time Spent With Patient Time: Total time spent is greater than 50% in coordination of care (as documented) at patient's floor/unit and/or counseling patient: Review of Systems 2 Constitutional: Constitutional: Denies chills, Denies fever(s) and Denies headache(s) Eyes: Eyes: Denies change in vision ENT: Denies dizziness and Denies headache(s) Cardiovascular: Cardiovascular: Denies chest pain, Denies palpitations and Denies dyspnea Respiratory: Respiratory: Denies cough and Denies dyspnea Gastrointestinal: Gastrointestinal: Denies nausea and Denies vomiting Neurologic: Denies dizziness and Denies headache(s) Endocrine: Endocrine: Denies palpitations Exam 2 Const: General: cooperative, comfortable and no acute distress O rientation/consciousness: patient oriented x3 Resp: Effort & Inspection: normal respiratory effort Auscultation: clear to auscultation bilaterally Cardio: Rate: regular rate GI: Inspection: non-distended GI Palp: No abdominal tenderness and Yes Soft to palpation Auscultation: normal bowel sounds : Other: fundus firm Skin: General skin exam: normal color Neuro: General: patient oriented x3 Extrem: General: normal to inspection Psych: Appearance: grossly normal Affect: normal affect Attitude: c ooperative
[2024-12-07] MEDS: WITCH HAZEL 40 PADS 1 PAD TOPICAL (12:16)
== END 2024-12-07 15:45 | disposition home or self-care (01) | DRG 560 ==
LOC: ANHOB2 12-07 06:40 → ANHLDR 12-12 13:42 → ANHOB2 12-12 13:42
PROVIDERS: Admitting Provider Obstetrics & Gynecology; Visit Provider Obstetrics & Gynecology
DX: O80 Encounter for full-term uncomplicated delivery (principal); Z3A.39 39 weeks gestation of pregnancy; Z37.0 Single live birth
CPT/HCPCS: 36415; 85014; 85018; 85025; 86593; 86703; 86850; 86900; 86901; A9270; G0432; J2590; J2795; J7120